=== PATIENT | male | born 1955 | race Caucasian/White ===

== ENCOUNTER → 2016-10-03 | Outpatient (CLI) | payer BC ==
[~2016-10-03] VITALS: Ht 175.3 cm; Wt 127.1 kg
[~2016-10-03] MED LIST: ACET325T96 PO; ASPCH81X PO; ATOR10TA88 PO; CALC600T14 PO; CETI10TA84 PO; CHOL100027 PO; FISHOIL PO; METO-217 PO; MULT-506 PO; OXYC1TAB3 PO; POTA99TA PO; PRLSR20 PO
[2016-10-03 15:58] VITALS: BP 122/77; PULSE 64; Ht 175.3 cm; Wt 127.1 kg
== END | disposition home or self-care (01) ==
LOC: C.NEUR 14:37
PROVIDERS: ATTEND Internal Medicine Pulmonary Disease
DX: G47.30 Sleep apnea, unspecified (principal)

== ENCOUNTER → 2017-01-20 | Outpatient (CLI) | payer BC ==
[~2017-01-20] MED LIST changes: +ATOR10TA82 PO; -ATOR10TA88 PO; -OXYC1TAB3 PO
[2017-01-20 12:34] LABS: ALT/SGPT 45 U/L (12-78); BLOOD UREA NITROGEN 13 mg/dl (7-18); BUN/CREATININE RATIO 15.7 (10-20); CARBON DIOXIDE 28 mmol/L (21-32); CHLORIDE 105 mmol/L (98-107); CHOLESTEROL 142 mg/dl (0-200); CREATININE 0.81 mg/dl (0.60-1.40); GLUCOSE 101 mg/dl (70-99); POTASSIUM 4.2 mmol/L (3.5-5.1); SODIUM 140 mmol/L (136-145); TRIGLYCERIDES 70 mg/dl (0-150); VERY LOW DENSITY LIPOPROT CALC 14 mg/dl
[2017-01-20 12:37] LABS: ALB/GLOB RATIO 1.1 (0.9-2); ALKALINE PHOSPHATASE 83 U/L (45-117); AST/SGOT 24 U/L (15-37); CHOLESTEROL/HDL RATIO 3.8; HDL CHOLESTEROL 37 mg/dl; LDL CHOLESTEROL CALCULATED 91 mg/dl
[2017-01-20 12:48] LABS: ESTIMATED AVERAGE GLUCOSE 117 mg/dl; HA1C FLAG Normal (Normal)
[2017-01-20 12:55] LABS: CALCIUM 9.1 mg/dl (8.5-10.1)
== END | disposition home or self-care (01) ==
LOC: C.LAB1850 09:40
PROVIDERS: ATTEND Family Medicine
DX: I10 Essential (primary) hypertension (principal); E11.9 Type 2 diabetes mellitus without complications; E66.01 Morbid (severe) obesity due to excess calories; R74.8 Abnormal levels of other serum enzymes; K76.0 Fatty (change of) liver, not elsewhere classified

== ENCOUNTER → 2017-09-29 | Outpatient (CLI) | payer OTHER ==
[~2017-09-29] MED LIST changes: +ACET-1693 PO; -ACET325T96 PO; +CALC500T25 PO; +CALC500T72 PO; +OMEG-13 PO
[2017-09-29 13:01] LABS: HEMOGLOBIN A1C 6.6 % (4.5-5.6)
[2017-09-29 13:32] LABS: BLOOD UREA NITROGEN 15 mg/dl (7-18); CALCIUM 9.1 mg/dl (8.5-10.1); CARBON DIOXIDE 31 mmol/L (21-32); CHOLESTEROL 183 mg/dl (0-200); CREATININE 0.94 mg/dl (0.60-1.40); GLUCOSE 124 mg/dl (70-99); POTASSIUM 4.2 mmol/L (3.5-5.1); SODIUM 138 mmol/L (136-145)
[2017-09-29 13:37] LABS: LDL CHOLESTEROL CALCULATED 115 mg/dl
== END | disposition home or self-care (01) ==
LOC: C.LAB1850 11:10
PROVIDERS: ATTEND Family Medicine
DX: E11.69 Type 2 diabetes mellitus with other specified complication (principal); N41.9 Inflammatory disease of prostate, unspecified; E78.2 Mixed hyperlipidemia; I10 Essential (primary) hypertension

== ENCOUNTER → 2017-10-05 | Outpatient (CLI) | payer OTHER ==
[~2017-10-05] VITALS: Ht 175.3 cm; Wt 138.3 kg
[~2017-10-05] MED LIST changes: -ACET-1693 PO; +ACET325T96 PO; -CALC500T25 PO; -CALC500T72 PO; -OMEG-13 PO
[2017-10-05 13:48] VITALS: BP 155/92; PULSE 83; Ht 175.3 cm; Wt 138.3 kg
== END | disposition home or self-care (01) ==
LOC: C.NEUR 13:35
PROVIDERS: ATTEND Physician Assistant
DX: G47.61 Periodic limb movement disorder (principal); G47.30 Sleep apnea, unspecified

== ENCOUNTER → 2017-12-22 | Outpatient (CLI) | payer OTHER ==
[~2017-12-22] MED LIST changes: +ACET-1693 PO; -ACET325T96 PO
[2017-12-22 12:50] LABS: HEMATOCRIT 41.5 % (42-52); HEMOGLOBIN 14.8 g/dL (14.0-18.0); MEAN CELL VOLUME 88.1 fL (80-100); MEAN CORPUSCULAR HEMOGLOBIN 31.4 pg (25-34); MEAN CORPUSCULAR HGB CONC 35.7 g/dl (32-36); MEAN PLATELET VOLUME 10.7 fL (7.4-10.4); PLATELET COUNT 162 K/uL (130-400); RED CELL DISTRIBUTION WIDTH CV 12.6 % (11.5-14.5); RED CELL DISTRIBUTION WIDTH SD 40.7 fL (36.4-46.3); WHITE BLOOD COUNT 7.57 K/uL (4.8-10.8)
[2017-12-22 15:32] LABS: ALBUMIN 3.9 gm/dl (3.4-5.0); ALT/SGPT 107 U/L (12-78); BLOOD UREA NITROGEN 12 mg/dl (7-18); CALCIUM 8.6 mg/dl (8.5-10.1); CARBON DIOXIDE 27 mmol/L (21-32); CHOLESTEROL 142 mg/dl (0-200); CREATININE 0.86 mg/dl (0.60-1.40); GLUCOSE 117 mg/dl (70-99); POTASSIUM 4.1 mmol/L (3.5-5.1); SODIUM 138 mmol/L (136-145)
[2017-12-22 15:43] LABS: ALKALINE PHOSPHATASE 81 U/L (45-117); AST/SGOT 66 U/L (15-37); LDL CHOLESTEROL CALCULATED 83 mg/dl
== END | disposition home or self-care (01) ==
LOC: C.LAB1850 11:23
PROVIDERS: ATTEND Family Medicine
DX: Z00.00 Encounter for general adult medical examination without abnormal findings (principal); E11.9 Type 2 diabetes mellitus without complications; E78.2 Mixed hyperlipidemia; I10 Essential (primary) hypertension

== ENCOUNTER 2018-02-05 13:19 | Emergency (ER) | payer OTHER ==
[~2018-02-05] VITALS: Ht 175.3 cm; Wt 140.6 kg
[2018-02-05 13:22] VITALS: TEMP 36.8; Ht 175.3 cm; Wt 140.6 kg
[2018-02-05] MEDS ORDERED: PROPARACAINE HCL 0.5% OP SOLN 15 ML BTL OPB STA (13:26)
[2018-02-05] MEDS ORDERED: OMEG-13 PO (13:44)
[2018-02-05] MEDS ORDERED: CALC500T25 PO (13:44)
[2018-02-05] MEDS ORDERED: CALC500T72 PO (13:45)
--- NOTE | 2018-02-05 14:28 | EMERGENCY ROOM VISIT NOTE ---
History First contact with patient: 13:26 Chief Complaint: EYE PAIN Stated Complaint: RT EYE History of Present Illness The patient is a 62 year old male who presents to the Emergency Room with complaints of bilateral eye discomfort after accidentally spraying an insect repellent in his eyes. The patient reports that he was spraying his hat while wearing it, and when he got below his bill, sprayed his eyes. The patient reports that he attempted to irrigate his eyes with water. He reports persistent discomfort. He denies any significant blurred vision, headache, nausea or other symptoms. Tetanus immunization is up-to-date. Review of Systems 10 system review was performed and was negative except for pertinent positives and negatives as indicated in history of present illness Past Medical/Surgical History Medical Problems: (1) GERD (gastroesophageal reflux disease) (2) Hypertension (3) Kidney disease Medical Problems: (1) Diverticulosis Colon (W/O Ment Of Hemorrhage) (2) GERD (gastroesophageal reflux disease) (3) History Of Tobacco Use (4) Hyperlipidemia Nec/Nos (5) Hypertension (6) Inflammatory Disease Of Prostate, Unspecified (7) Kidney disease (8) Morbid (Severe) Obesity Due To Excess Calories (9) Sleep Apnea, Unspecified Family History Cancer Diabetes mellitus Hypertension Social History Smoking Status: Never Smoker Alcohol Use: none Drug Use: none Marital Status: Housing Status: lives with family Occupation Status: employed Current/Historical Medications Scheduled Aspirin (Aspirin Chewable), 81 MG PO DAILY Atorvastatin (Lipitor), 10 MG PO DAILY Calcium Ascorbate (Vitamin C), 500 MG PO DAILY Calcium Carbonate (Calcium), 1,250 MG PO DAILY Cetirizine (Zyrtec), 10 MG PO DAILY Cholecalciferol (Vitamin D 1000 Unit), 2,000 INTER.UNIT PO DAILY Metoprolol Succinate (Toprol Xl), 50 MG PO DAILY Multivitamin (Multivitamin), 1 TAB PO DAILY [place]-3 Fatty Acids (Fish Oil), 1 CAP PO BID Omeprazole (Prilosec), 20 MG PO DAILY Potassium (Potassium), 99 MG PO DAILY Scheduled PRN Acetaminophen Tab (Tylenol), 650 MG PO UD PRN for Pain Physical Exam Vital Signs Date Time Temp Pulse Resp B/P (MAP) Pulse Ox O2 Delivery O2 Flow Rate FiO2 18 13:22 36.8 71 18 183/109 94 Room Air Physical Exam CONSTITUTIONAL: Healthy and well nourished. Patient does not appear in any acute distress. HEENT: Normocephalic, atraumatic. Pupils equal, round and reactive. No significant conjunctival injection or excess tearing/mucopurulent/bloody drainage from the eyes. No facial edema or erythema noted. NECK: Full active range of motion without discomfort. RESPIRATORY: Clear to auscultation bilaterally with no wheezing, crackles, rhonchi or stridor. CARDIOVASCULAR: Regular rate and rhythm with no murmurs, rubs or gallops. INTEGUMENTARY: No rash or other significant dermatologic conditions noted. NEUROLOGIC: No focal neurologic deficits noted. Medical Decision & Procedures Medications Administered Medications (Trade) Dose Ordered Sig/Alina Route Start Time Stop Time Status Last Admin Dose Admin Proparacaine HCl (Alcaine 0.5% Oph Soln) 2 drops NOW STAT OPB 02/05/18 13:26 02/05/18 13:27 DC 02/05/18 13:52 2 DROPS Procedure 2 drops of Alcaine were instilled into each eye. Cuauhtemoc lenses were then inserted in each eye was irrigated with a liter of normal saline. After Cuauhtemoc lens irrigation, slit-lamp exam was performed. 2 additional drops of Alcaine were instilled in each eye, followed by fluorescein dye. Examination does not show any corneal uptake, abrasions or evidence for chemical chemosis/irritation. ED Course Patient history and physical exam were performed. Nurse's notes were reviewed. The patient did bring the product bottle with him. The product is Chassell Skin- So-Soft with bug guard plus ([id number]% as the active ingredient). I did contact and spoke with a agricultural sales representative from [employer] who recommended Cuauhtemoc lens irrigation and slit lamp exam, with referral to ophthalmology as needed. 2 drops of Alcaine were instilled into each eye prior to Cuauhtemoc lens insertion. Each eye was then irrigated with a liter normal saline. Slit-lamp and fluorescein exam were normal. The patient was dispensed Lacri-Lube ophthalmic ointment. He was encouraged to intermittently apply cool compresses to the eyes for additional relief. The patient was instructed to follow-up with Dr. Manriquez, teacher early childhood development waste transportation technician with any persistent symptoms, blurred vision, headaches or other concerns. The patient was happy with plan of care, voiced understanding of our discharge instructions, and denied any discomfort at the conclusion of my exam. Medical Decision Blood Pressure Screening Patient's blood pressure: Normal blood pressure Impression Primary Impression: Acute chemical conjunctivitis of both eyes Departure Information Referrals Shonda Forbes M.D. (PCP) Patient Instructions My [facility]
[2018-02-05] MEDS ORDERED: ARTIFICIAL TEARS OP OINT 3.5 GM TUBE OP ONE (14:30)
[2018-02-05 14:41] VITALS: BP 126/99; PULSE 72; O2SAT 100
== END 2018-02-05 14:42 | disposition home or self-care (01) ==
LOC: C.EDB 13:20 → C.EDD 14:42
DX: T60.2X1A Toxic effect of other insecticides, accidental (unintentional), initial encounter (principal); H10.213 Acute toxic conjunctivitis, bilateral; E78.5 Hyperlipidemia, unspecified; K21.9 Gastro-esophageal reflux disease without esophagitis; Z79.82 Long term (current) use of aspirin

== ENCOUNTER 2019-02-06 06:20 | Observation (INO) ==
--- NOTE | 2019-02-05 09:18 | Anesthesiology Consultation ---
Date of Service February 05, 2019 Assessment & Plan (1) Encounter for pre-operative examination: Chart Review Chart Review: Acceptable Risk for Surgery and Patient NOT seen in Pre Admission Testing History Surgery Operation Date: 02/06/19 08:00 Proposed Procedures p Supraventricular Tachycardia Study with Mapping and Anesthesia - Andie Antunez DO Height/Weight Height: 5 ft 9 in Weight: 138.346 kg Allergies Allergy/AdvReac Type Severity Reaction Status Date / Time amoxicillin Allergy Unknown RED AND Verified 02/01/19 11:54 START TO SWELL UP Influenza Virus Vaccines Allergy Unknown "MAKES ME Verified 02/01/19 11:54 SICKER" streptomycin Allergy Unknown EYES BURN Verified 02/01/19 11:54 Medications Home Medications Medication Instructions Recorded Confirmed Last Taken Tomasa Gonzalez U-100 Insulin 10 unit SUBCUT QPM 10/19/18 02/01/19 01/19/19 acetaminophen [Tylenol Extra 500 - 1,000 mg PO Q6H PRN 10/19/18 02/01/19 10/30/18 Strength] ascorbic acid (vitamin C) [Vitamin 500 mg PO BID 10/19/18 02/01/19 01/20/19 C] aspirin 81 mg PO QAM 10/19/18 02/01/19 01/21/19 324mg calcium carbonate-vitamin D3 1 tab PO BID 10/19/18 02/01/19 01/21/19 [Calcium 600 + D(3)] cetirizine [Zyrtec] 10 mg PO QAM 10/19/18 02/01/19 01/21/19 cholecalciferol (vitamin D3) 1,000 unit PO BID 10/19/18 02/01/19 01/21/19 [Vitamin D3] metformin 500 mg PO BID 10/19/18 02/01/19 01/20/19 metoprolol succinate 25 mg PO QPM 10/19/18 02/01/19 01/20/19 multivitamin 1 tab PO QPM 10/19/18 02/01/19 01/21/19 omega 0-fif-ipg-fish oil [Fish Oil] 1 cap PO BID 10/19/18 02/01/19 01/21/19 omeprazole 20 mg PO QAM 10/19/18 02/01/19 01/21/19 potassium 99 mg PO QPM 10/19/18 02/01/19 01/21/19 sertraline 50 mg PO QPM 10/19/18 02/01/19 01/20/19 atorvastatin [Lipitor] 60 mg PO DAILY 01/21/19 02/01/19 01/21/19 ciclopirox [Loprox (as olamine)] 1 applic TOPICAL Q12H PRN 01/21/19 02/01/19 Unknown Past Medical History Medical History Chest pain Evaluated at [facility] ED 01/12/19. Found to be in SVT at 180bpm. Had OP cardiac cath 01/21 showing normal coronary arteries. Depression Diabetes mellitus, type 2 IDDM GERD (gastroesophageal reflux disease) Hearing deficit History of colon polyps Hyperlipidemia Hypertension Morbid obesity Paroxysmal SVT (supraventricular tachycardia) recent ER visit [facility] 01/12/19 Sleep apnea cpap Past Family History Family History Sister Family history of diabetes mellitus Mother Family history of diabetes mellitus Grandmother (Maternal) Family history of diabetes mellitus Grandfather (Maternal) Family hx of colon cancer Other No family history of adverse response to anesthesia Past Surgical History Surgical History History of cardiac cath 01/21/19 - [facility] -arrhythmia + cp - no stents/angioplasty - follows w/ Dr. Aj History of colonoscopy History of ear surgery "paper patch applied to ruptured eardrum" History of esophagogastroduodenoscopy (EGD) History of hand surgery left hand pinky finger History of tooth extraction all top teeth removed Social History Smoking Status: Former smoker Do You Dip or Chew Tobacco: No Smoking End Date: quit 1982 Hx Alcohol Use: Yes Alcohol type: hard liquor alcohol intake frequency: holidays/special occasions only Hx Substance Use: No substance use type: does not use Testing Electrocardiogram Date: 01/18/19 Findings: + NSR @ (63) Chest X-Ray Date: 01/12/19 Findings: + NAD Echocardiogram Date: 02/04/19 EF: 55-59% The examination is adequate to evaluate the referral indication. EF normal. Left ventricular wall motion normal. Mild concentric LVH. Right ventricular systolic function is normal. Normal atria. Mild MR. Cardiac Catheterization Date: 01/21/19 Coronary angiography: Selective injections of the left coronary artery revealed a left main trunk to be smooth in appearance widely patent and within normal limits. The left circumflex artery consists principally of 2 large lateral marginal branches. The left circumflex system is smooth in appearance widely patent and within normal limits. The LAD system reaches to the apex of the heart. The LAD gives off a large first diagonal branch and then a second smaller diagonal branch. The LAD system is smooth in appearance widely patent and within normal limits. Selective injections of the right coronary artery revealed to be dominant. The right coronary artery is smooth in appearance widely patent and within normal limits. Summary: Normal coronary arteries. Laboratory Results 01/12/19 WBC: 10.25 H/H: 15.8/43.6 PLATELETS: 173 SODIUM: 143 POTASSIUM: 3.9 CHLORIDE: 107 CO2: 27 BUN: 16 CREATININE: 1.12 GLUCOSE: 164 PT: 11.2 PTT: 24.5 INR: 1.1
[~2019-02-06 06:20] MED LIST changes: -ACET-1693 PO; -ASPCH81X PO; -ATOR10TA82 PO; -CALC600T14 PO; -CETI10TA84 PO; -CHOL100027 PO; -FISHOIL PO; +LR 15ML/HR IV SCH; -METO-217 PO; -MULT-506 PO; -POTA99TA PO; -PRLSR20 PO
[2019-02-06] MEDS ORDERED: LIDOCAINE HCL 2% 2 ML VIAL/AMP(20MG/ML) INFIL ONE (08:03)
[2019-02-06] MEDS ORDERED: PROPOFOL IV EMULSION 10 MG/ML 20 ML VIAL IV ONE ×4 (08:03→11:51)
[2019-02-06] MEDS ORDERED: MIDAZOLAM HCL 1 MG/ML 2ML VIAL ONE ×2 (08:03→09:00)
[2019-02-06] MEDS ORDERED: fentaNYL citrate 100 MCG/2 ML VIAL ONE ×3 (08:03→10:30)
[2019-02-06] MEDS ORDERED: PROPOFOL IV EMULSION 10 MG/ML 100 ML VIAL IV ONE (08:05)
--- NOTE | 2019-02-06 08:08 | History & Physical Report ---
Date of Service February 06, 2019 Assessment & Plan (1) SVT (supraventricular tachycardia): History of Present Illness Chief Complaint: pt with episode of lightheadedness, chest pain palpitations and syncope; cath was negative for an EPS with possible ablation Primary Care Provider: Shonda Forbes MD pt with episode of lightheadedness, chest pain palpitations and syncope; cath was negative for an EPS with possible ablation Allergies Allergy/AdvReac Type Severity Reaction Status Date / Time amoxicillin Allergy Unknown RED AND Verified 02/06/19 06:48 START TO SWELL UP Influenza Virus Vaccines Allergy Unknown "MAKES ME Verified 02/06/19 06:48 SICKER" streptomycin Allergy Unknown EYES BURN Verified 02/06/19 06:48 Home Medications Home Medications Medication Instructions Recorded Confirmed Type Tomasa Gonzalez U-100 Insulin 10 unit SUBCUT QPM 10/19/18 02/06/19 History acetaminophen [Tylenol Extra 500 - 1,000 mg PO Q6H PRN 10/19/18 02/06/19 History Strength] ascorbic acid (vitamin C) [Vitamin 500 mg PO BID 10/19/18 02/06/19 History C] aspirin 81 mg PO QAM 10/19/18 02/06/19 History calcium carbonate-vitamin D3 1 tab PO BID 10/19/18 02/06/19 History [Calcium 600 + D(3)] cetirizine [Zyrtec] 10 mg PO QAM 10/19/18 02/06/19 History cholecalciferol (vitamin D3) 1,000 unit PO BID 10/19/18 02/06/19 History [Vitamin D3] metformin 500 mg PO BID 10/19/18 02/06/19 History metoprolol succinate 25 mg PO QPM 10/19/18 02/06/19 History multivitamin 1 tab PO QPM 10/19/18 02/06/19 History omega 4-rzz-yvm-fish oil [Fish Oil] 1 cap PO BID 10/19/18 02/06/19 History omeprazole 20 mg PO QAM 10/19/18 02/06/19 History potassium 99 mg PO QPM 10/19/18 02/06/19 History sertraline 50 mg PO QPM 10/19/18 02/06/19 History atorvastatin [Lipitor] 60 mg PO DAILY 01/21/19 02/06/19 History ciclopirox [Loprox (as olamine)] 1 applic TOPICAL Q12H PRN 01/21/19 02/01/19 History Past Med/Surg History Medical History Chest pain Evaluated at [facility] ED 01/12/19. Found to be in SVT at 180bpm. Had OP cardiac cath 01/21 showing normal coronary arteries. Depression Diabetes mellitus, type 2 IDDM GERD (gastroesophageal reflux disease) Hearing deficit History of colon polyps Hyperlipidemia Hypertension Morbid obesity Paroxysmal SVT (supraventricular tachycardia) recent ER visit [facility] 01/12/19 Sleep apnea cpap Surgical History History of cardiac cath 01/21/19 - [facility] -arrhythmia + cp - no stents/angioplasty - follows w/ Dr. Aj History of colonoscopy History of ear surgery "paper patch applied to ruptured eardrum" History of esophagogastroduodenoscopy (EGD) History of hand surgery left hand pinky finger History of tooth extraction all top teeth removed Family History Sister Family history of diabetes mellitus Mother Family history of diabetes mellitus Grandmother (Maternal) Family history of diabetes mellitus Grandfather (Maternal) Family hx of colon cancer Other No family history of adverse response to anesthesia Social History Preferred Language: Monegasque Communication Ability: Effective Auto Rebuilder Required: No Beliefs That Will Affect Care: None Current Living Situation: Spouse Other Information That Helps Us Care for You: No Feels Safe at Home: Yes Safety Concerns: Feels Safe At This Time Smoking Status: Former smoker Do You Dip or Chew Tobacco: No Smoking End Date: quit 1982 Second Hand Exposure: Yes (work environment) Tobacco Cessation Education Requested by Patient: No Hx Alcohol Use: Yes Alcohol type: hard liquor Hx Substance Use: No Review of Systems All systems reviewed & are unremarkable except as noted in HPI & below Physical Exam Physical Exam: aaox3, NAD NC/AT, EOMI Supple No JVD Nrl S1/S2, No murmur CTA b/l no w/r/r soft nt/nd no LE edema b/l skin intact no focal deficits Results & Data Vital Signs (Past 12 Hours) Vital Signs Temp Pulse Resp BP Pulse Ox 02/06/19 07:02 36.9 C 69 18 149/96 H 96
[2019-02-06] MEDS ORDERED: ISOPROTERENOL 200 MCG / 50ML D5W IV ONE (09:46)
[2019-02-06] MEDS ORDERED: KETAMINE HCL INJ 50 MG/ML 10 ML VIAL ONE (10:37)
[2019-02-06] MEDS ORDERED: ACETAMINOPHEN 325 MG TAB PO PRN (12:06)
--- NOTE | 2019-02-06 12:16 | Operative Report ---
Post Operative Report Pre & Post Diagnosis Pre OP: SVT Post OP: AVNRT Operation Date: 02/06/19 08:00 <No data on this case meets the specified criteria> Procedure Operation Date: 02/06/19 08:00 Actual Procedures p EPS + Ablation for SVT Flutter - DO miguel Rosas Drug Stimulation - DO miguel Rosas 3D Mapping (Carto) - Andie Antunez DO Surgeon Andie Antunez, Guitar Player none Estimated Blood Loss 5 Findings Consistent with Post-Op Diagnosis Specimens none Description of Procedure see official report I attest to the content of the Intraoperative Record and any orders documented therein. Any exceptions are noted below.
--- NOTE | 2019-02-06 13:23 | Anesthesiology Progress Note ---
Date of Service February 06, 2019 Anesthesia Post Procedure Vital Signs Vital Signs: Temp Pulse Resp BP Pulse Ox 02/06/19 12:37 36.8 C 68 16 142/99 H 95 02/06/19 07:02 36.9 C 69 18 149/96 H 96 Transfer of Care Handoff Completed per policy Notes Mental Status: alert / awake / arousable Patient Amnestic to Procedure: Yes Nausea / Vomiting: adequately controlled Pain: adequately controlled Airway Patency, RR, SpO2: stable & adequate BP & HR: stable & adequate Hydration State: stable & adequate Anesthetic Complications: no major complications apparent
[2019-02-06] MEDS ORDERED: CARBOHYDRATES FOR HYPOGLYCEMIA PO PRN (13:30)
[2019-02-06] MEDS ORDERED: GLUCOSE 40% GEL 15 GM TUBE PO PRN (13:30)
[2019-02-06] MEDS ORDERED: GLUCAGON FOR INJ 1 MG VIAL IM PRN (13:30)
[2019-02-06] MEDS ORDERED: DEXTROSE 50% 50 ML SYRINGE IV PRN (13:30)
[2019-02-06] MEDS ORDERED: GLUCOSE 10 TABS/TUBE PO PRN (13:30)
[2019-02-06 14:30] LABS: Creatinine Clr Calc Pharmacy 122.6 ml/min; Est GFR (African American) 107.7; Est GFR (Non-African American) 92.9
[2019-02-06] MEDS: CALCIUM 600MG + VIT D 400 IU TAB PO SCH (16:49)
--- NOTE | 2019-02-06 17:42 | Operative Report ---
DATE OF OPERATION: 02/06/2019 PREOPERATIVE DIAGNOSIS: Supraventricular tachycardia. POSTOPERATIVE DIAGNOSIS: Atrioventricular nancy reentrant tachycardia. PROCEDURE: Electrophysiology study, isuprel drug infusion, slow pathway modification, 3D mapping of the His bundle region and coronary sinus os. SURGEON: Andie Antunez DO. ANESTHESIA: Monitored anesthetic care administered via anesthesiology. See their notes for complete details, but a total of 4 mg of Versed, 300 mcg of fentanyl, 50 mg of propofol, 40 mg of ketamine. INTRAVENOUS FLUIDS: He got 200 mL during my procedure but same day gave 400 mL for some reason. BLOOD LOSS: 5 mL. URINE OUTPUT: Not applicable. SPECIMENS: None. FINDINGS: See below. DRAINS: None. COMPLICATIONS: None. CONDITION: Stable. INDICATIONS: This is a 63-year-old gentleman who has a past medical history for hypertension, hyperlipidemia, obstructive sleep apnea on CPAP, diabetes, morbid obesity. He was at the Emergency Room on 01/12/2019 secondary to SVT, short RP at 180 beats per minute, it broke after 2 doses of adenosine. He had a cardiac catheterization as an outpatient to ensure that he did not have any significant coronary artery disease and the cardiac cath was clean. So he was recommended for an electrophysiology study with possible ablation. CONSENT: Consent was obtained prior to the patient going into electrophysiology lab. The patient was informed of the risks, benefits, and alternatives of the procedure. Risks include but not limited to sudden cardiac , cardiac arrhythmias, cerebrovascular accident, myocardial infarction, injury to the blood vessels, chamber of the heart or the marshall electrical system where he would need a permanent pacemaker, bleeding and infection. The patient understood these risks and agreed to the procedure as planned. Informed consent was obtained. DESCRIPTION OF THE PROCEDURE: The patient was brought into the electrophysiology room in a fasting state. He was connected to continuous quality assurance monitor. A timeout was performed to ensure patient identity and procedure correctly. The patient was prepped and draped over the bilateral groins in normal surgical standard fashion. Monitored conscious sedation was given throughout the procedure for patient's comfort level via anesthesiology. [place] precautions were maintained throughout the procedure. 10 mL of 1% lidocaine were given in the bilateral groins for local anesthesia. Then, using modified Seldinger technique, venous access was obtained. Of note, on the left, I did hit with my IV needle the femoral artery twice. Pressure was held both times. There was no hematoma. The right femoral vein had a 6-Mozambican sheath followed by a Tiki quadripolar catheter positioned in the high right atrium. A 6-Mozambican sheath followed by a Tiki quadripolar catheter positioned in the right ventricular apex. A 6-Mozambican sheath that was eventually swapped out for an SR0 for the ablation catheter, which was a Biosense DF curve 4 mm. The left femoral vein had a 7-Mozambican sheath followed by a Hisser quadripolar catheter positioned over the His bundle. A 7-Mozambican sheath followed by a Decapolar Biosense DF curve coronary sinus catheter positioned down the coronary sinus. With the catheters all in position, electrophysiology study was performed with the following findings: NJ interval 182 milliseconds, QRS 80 milliseconds, QT 402 milliseconds. Sinus cycle length 950 milliseconds, AH 92 milliseconds, HV 62 milliseconds. The AV Wenckebach was 380 milliseconds. The AV node ERP was less than or equal to the atrial ERP at [address] The atrial ERP was 600/250 and 500/240. The right ventricular ERP was 600/230 and 400/230. With atrial extrastimuli at 500/310, I did induce a SVT. The tachycardia cycle length was slower than his clinical at 384 milliseconds and the VA time was 120 milliseconds. It did start with an AH jump though and it looked concentric with the retrograde. This did break on its own. With ventricular extrastimuli, I induced tachycardia again. I initiated with an APC at 400/240, ventricular stimulation at 400/240 followed then by a marshall APC came in. He went into SVT with a tachycardia cycle length of 372 and the VA time was 126 milliseconds. With atrial double extrastimuli at 500/400/320, SVT was then reinduced at tachycardia cycle length of 380 and the VA time of 140, again he always broke on his own with these SVTs that were at a different rate than his clinical. Then with double atrial extrastimuli at 500/400/310, again he went into the tachycardia but is a little faster at 368 milliseconds and it did start with an AH jump. Since I kept inducing a slower SVT, but never sustained and it continued to break on its own, I started isuprel at 1 and once I had an isuprel effect, I started an electrophysiology study again. The AV node ERP was less than or equal to the atrial ERP at [address] and the atrial ERP was 500/220. With double atrial extrastimuli at 500/400/240 on isuprel, I did induce the tachycardia again. Tachycardia cycle length was best at this time at 300 milliseconds. VA time was 86 milliseconds and it was a concentric VA conduction. I induced this 2 more times at 500/370/230. Tachycardia cycle length was 288 milliseconds. VA time was 66 milliseconds. It initiated with an AH jump. The atrial retrograde A was concentric and the tachycardia continued with a VAV response. Of note, initially I was a little confused because I thought that maybe the earliest A was in the CS, but then when I went on for and realized the CS had pulled back when I pushed it out more, I confirmed that the earliest retrograde A was in the His concentric region. So, then I set up to do an ablation. The 6-Mozambican sheath on the right femoral vein that was empty was swapped out for an SR0, then the ablation SendTask DF curve 4 mm catheter was placed, advanced up into the heart. We did 3D mapping of the His bundle region as well as the coronary sinus os. Then I placed the ablation on the low atrial septum and started a series of radiofrequency hernandez at 30 mattson. I was a little bit higher up. There was a ridge that I was going back and forth in, but a few of the hernandez I felt were a little nerve wracking, I did have 2 or 3 beats that looked like it was AV dissociation, so I came off. We remapped, I went a little bit further lowered down on the right atrial septum. Again, there was a ridge here, at one point on the medial end of this ridge lowered down, I got a few junctionals, nothing that overwhelmingly confident, but I opted after giving a series of hernandez at 20 mattson to stop and see how we were clinically, so my post-ablation electrophysiology study is the following: NJ interval 164 milliseconds, QRS 84 milliseconds, QT 376 milliseconds, sinus cycle length 878 milliseconds, AH 102 milliseconds, HV 60 milliseconds, AV Wenckebach 360 milliseconds, the AV node ERP was less than or equal to the atrium at 600 and 500, the atrial ERP was 600/240 and 500/230. The right ventricular ERP was 600/230 and 400/220. I gave up to triple atrial extrastimuli from the high right atrium and I did not induce any SVT unlike before the ablation where I was getting that slow kind of atypical AVNRT, so then I did start 1 of isuprel. I did not induce any SVT with single atrial extrastimuli, but I did induce at 400/380/230. It was brief, only lasting about 10-12 beats and it broke on its own. I went back with my ablation catheter to do some electrogram and anatomical mapping and back in that low septum area where I gave those last few hernandez where I had a couple of junctionals, I saw a signal on my ablation catheter that this was too nerve wracking for me to think that maybe it was a His, even though I was 2 cm away from my His catheter as well as my His markers, so I opted not to do any further ablations All the catheters were pulled from the body and then the sheaths were pulled and manual compression was used to establish hemostasis. IMPRESSION: 1. 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 2. Partially successful slow pathway modification and suppression of the atrioventricular nancy reentry tachycardia. PLAN: Monitor the patient overnight. No heavy lifting or squatting for 1 week of more than 10 pounds. We will increase his metoprolol to 37.5 mg daily and we will see how he does clinically as he really needs to get his heart rates fed up to even have partially inducible AVNRT, but again I was nervous that I was going to have a high risk of causing complete heart block to continue any further ablations without seeing how he does clinically. He will follow up with me in the office in 1 month's time. I attest to the content of the Intraoperative Record and any orders documented therein. Any exception s are noted below.
[2019-02-06] MEDS ORDERED: INSULIN GLARGINE SOLOSTAR 100 UNITS/ML 3 ML PEN SQ SCH (21:00)
[2019-02-06] MEDS ORDERED: MULTIVITAMIN TAB PO SCH (21:00)
[2019-02-06] MEDS ORDERED: SERTRALINE HCL 50 MG TABLET PO SCH (21:00)
[2019-02-06] MEDS ORDERED: NON-FORMULARY MEDICATION (Potassium 99 MG) PO SCH (21:00)
[2019-02-06] MEDS: ASCORBIC ACID 500 MG TAB PO SCH (21:16)
[2019-02-06] MEDS: OMEGA-3 (PURIFIED FISH OIL) 1 GM CAP PO SCH (21:16)
[2019-02-06] MEDS: CHOLECALCIFEROL 1,000 UNITS TAB PO SCH (21:16)
[2019-02-07] MEDS: CALCIUM 600MG + VIT D 400 IU TAB PO SCH (07:49)
[2019-02-07] MEDS: OMEGA-3 (PURIFIED FISH OIL) 1 GM CAP PO SCH (07:49)
[2019-02-07] MEDS: CHOLECALCIFEROL 1,000 UNITS TAB PO SCH (07:49)
[2019-02-07] MEDS: ASCORBIC ACID 500 MG TAB PO SCH (07:49)
[2019-02-07] MEDS ORDERED: METFORMIN HCL 500 MG TAB PO SCH (08:00)
--- NOTE | 2019-02-07 08:05 | Anesthesiology Progress Note ---
Date of Service February 07, 2019 Anesthesia Post Procedure Vital Signs Vital Signs: Temp Pulse Pulse Resp BP BP Pulse Ox 02/07/19 07:02 37.0 C 64 18 124/84 95 02/07/19 03:18 37.0 C 66 19 136/86 95 02/06/19 23:36 68 02/06/19 23:19 37.1 C 70 18 142/89 H 95 02/06/19 19:35 37.2 C 72 19 137/88 95 02/06/19 16:04 37.0 C 72 17 138/90 96 02/06/19 14:30 67 16 135/89 97 02/06/19 14:00 65 14 129/89 96 02/06/19 13:25 65 16 133/85 96 02/06/19 13:10 67 15 136/84 96 02/06/19 12:55 65 16 135/85 96 02/06/19 12:37 36.8 C 68 16 142/99 H 95 Notes Mental Status: alert / awake / arousable and participated in evaluation Nausea / Vomiting: adequately controlled Pain: adequately controlled Airway Patency, RR, SpO2: stable & adequate BP & HR: stable & adequate Hydration State: stable & adequate
[2019-02-07] MEDS ORDERED: ATORVASTATIN 20 MG TAB PO SCH (09:00)
[2019-02-07] MEDS ORDERED: CETIRIZINE HCL 10 MG TABLET PO SCH (09:00)
[2019-02-07] MEDS ORDERED: ASPIRIN 81 MG ECTAB PO SCH (09:00)
[2019-02-07] MEDS ORDERED: METOPROLOL SUCC 25MG EXT REL TAB PO SCH ×2 (09:00)
[2019-02-07] MEDS ORDERED: PANTOprazole 40 MG TAB PO SCH (09:00)
--- NOTE | 2019-02-22 08:12 | Discharge Summary ---
Date of Service February 06-Feb 07 2019 Admission HPI pt with episode of lightheadedness, chest pain palpitations and syncope; cath was negative for an EPS with possible ablation Admission Exam Per Admitting Provider aaox3, NAD NC/AT, EOMI Supple No JVD Nrl S1/S2, No murmur CTA b/l no w/r/r soft nt/nd no LE edema b/l skin intact no focal deficits Principal Diagnosis Principal Diagnosis AVNRT s/p slow pathway modification Discharge Exam aaox3, NAD NC/AT, EOMI Supple No JVD Nrl S1/S2, No murmur CTA b/l no w/r/r soft nt/nd no LE edema b/l skin intact no focal deficits ECG: SR Discharge Data Allergies Allergy/AdvReac Type Severity Reaction Status Date / Time amoxicillin Allergy Unknown RED AND Verified 02/12/19 05:29 START TO SWELL UP Influenza Virus Vaccines Allergy Unknown "MAKES ME Verified 02/12/19 05:29 SICKER" streptomycin Allergy Unknown EYES BURN Verified 02/12/19 05:29 Procedures Performed Operation Date: 02/06/19 08:00 Actual Procedures p EPS + Ablation for SVT Flutter - DO miguel Rosas Drug Stimulation - DO miguel Rosas 3D Mapping (Carto) - Andie Antunez DO Ordered Studies 02/06/19 07:45 EP Lab Images for PACS ONCE Hospital Course (1) SVT (supraventricular tachycardia): (2) AVNRT (AV nancy re-entry tachycardia): Total Time Total Time Spent Total Time Spent (In Minutes): 30 Total Time Includes: Examination of the Patient, Discharge Planning, Medication Reconciliation and Other Discharge Plan Discharge Items Patient Disposition: Home - Self-Care Reason For Visit: S/P SVT ABLATION Discharge Diagnosis: AVNRT s/p ablation Condition: Good Discharge Goals: Improve function Activity: As commented below Lifting: No more than 10 pounds Lifting Comment: no heavy lifting or squating for 1 week Bathing: No limitations and Keep incision dry Sexual Activity: After two weeks Driving/Machine Use: Resume 1 day after discharge Non-emergency contact: Learning And Development Administrator Call non-emergency contact if: you have any medication questions Follow-up/Referrals: Shonda Forbes MD [Primary Care Provider] - Diet: Heart Healthy Addtl Provider Instructions: f/u with Dr. Antunez in 1 month-we will change your appointment to mid February Prescriptions: New metoprolol succinate 25 mg Tablet Extended Release 24 Hr 37.5 mg PO QAM Qty: 45 RF: 0 Continued multivitamin Tablet 1 tab PO QPM RF: 0 metformin 500 mg Tablet 500 mg PO BID RF: 0 cetirizine [Zyrtec] 10 mg Tablet 10 mg PO QAM RF: 0 acetaminophen [Tylenol Extra Strength] 500 mg Tablet 500 - 1,000 mg PO Q6H PRN (Reason: Pain) RF: 0 potassium 99 mg Tablet 99 mg PO QPM RF: 0 ascorbic acid (vitamin C) [Vitamin C] 500 mg Tablet 500 mg PO BID RF: 0 sertraline 50 mg Tablet 50 mg PO QPM RF: 0 cholecalciferol (vitamin D3) [Vitamin D3] 1,000 unit Tablet 1,000 unit PO BID RF: 0 calcium carbonate-vitamin D3 [Calcium 600 + D(3)] 600 mg(1,500mg) -400 unit Tablet 1 tab PO BID RF: 0 Basaglar KwikPen U-100 Insulin 100 unit/mL (3 mL) Insulin Pen 10 unit SUBCUT QPM RF: 0 omeprazole 20 mg Tablet,Delayed Release (Dr/Ec) 20 mg PO QAM RF: 0 omega 7-vme-xzy-fish oil [Fish Oil] 1,000 mg (120 mg-180 mg) Capsule 1 cap PO BID RF: 0 atorvastatin [Lipitor] 40 mg Tablet 20 mg PO QPM RF: 0 ciclopirox [Loprox (as olamine)] 0.77 % Cream 1 applic TOPICAL Q12H PRN (Reason: Rash) RF: 0 Discontinued metoprolol succinate 50 mg Tablet Extended Release 24 Hr 25 mg PO QPM RF: 0 No Action warfarin [Coumadin] 5 mg Tablet 5 mg PO DAILY@1600 Qty: 30 RF: 2 enoxaparin [Lovenox] 150 mg/mL Syringe 135 mg subcut Q12H 7 Days Qty: 12.6 RF: 0 lisinopril 5 mg tablet 5 mg PO DAILY Qty: 30 RF: 2 Stand-Alone Forms: [facility] Discharge Orders: Discharge Order (Routine); Ordered 02/07/19 Ordered By: Andie Antunez Admission Data Admit Date/Time: 02/06/19 11:13 Attending Provider: Andie Antunez Admit Provider: Andie Antunez Primary Care Provider: Shonda Forbes Service: Telemetry Other Interventions: Discharge Summary Assessment (RN) Last Done: 02/07/19 08:17 DC Date/Time DO NOT enter until pt leaves facility: 02/07/19 09:11
== END 2019-02-07 09:11 | disposition home or self-care (01) ==
LOC: 2S 06:20 → ASU 06:20
DX: Z79.82 Long term (current) use of aspirin; E11.9 Type 2 diabetes mellitus without complications; Z79.899 Other long term (current) drug therapy; I10 Essential (primary) hypertension; Z88.1 Allergy status to other antibiotic agents; Z99.89 Dependence on other enabling machines and devices; K21.9 Gastro-esophageal reflux disease without esophagitis; Z86.010 Personal history of colon polyps; G47.33 Obstructive sleep apnea (adult) (pediatric); Z88.7 Allergy status to serum and vaccine; Z88.0 Allergy status to penicillin; Z68.42 Body mass index [BMI] 45.0-49.9, adult; E66.01 Morbid (severe) obesity due to excess calories; E78.5 Hyperlipidemia, unspecified; I47.1 Supraventricular tachycardia

== ENCOUNTER 2019-02-12 04:55 | Inpatient (IN) ==
[2019-02-12] MEDS ORDERED: fentaNYL citrate 100 MCG/2 ML VIAL IV STA (05:37)
[2019-02-12 05:44] LABS: Basophils # (auto) 0.04 K/uL (0-0.2); Basophils % (auto) 0.4 %; Eosinophils # (auto) 0.35 K/uL (0-0.5); Eosinophils % (auto) 3.5 %; Hematocrit (blood only) 38.7 % (42-52); Hemoglobin 14.3 g/dL (14.0-18.0); Immature Granulocytes # (auto) 0.02 K/uL (0.00-0.02); Immature Granulocytes % (auto) 0.2 %; Lymphocytes # (auto) 3.41 K/uL (1.2-3.4); Lymphocytes % (auto) 34.4 %; Mean Corpuscular Volume 86.6 fL (80-100); Mean Platelet Volume 10.2 fL (7.4-10.4); Monocytes # (auto) 1.04 K/uL (0.11-0.59); Monocytes % (auto) 10.5 %; Neutrophils # (auto) 5.06 K/uL (1.4-6.5); Platelet Count 150 K/uL (130-400); RDW Coefficient of Variation 12.6 % (11.5-14.5); RDW Standard Deviation 40.1 fL (36.4-46.3); Red Blood Count 4.47 M/uL (4.7-6.1); White Blood Count 9.92 K/uL (4.8-10.8)
[2019-02-12 05:59] LABS: Alanine Aminotransferase 76 U/L (12-78); Albumin Level 3.5 gm/dl (3.4-5.0); Aspartate Aminotransferase 39 U/L (15-37); Blood Urea Nitrogen 14 mg/dl (7-18); Calcium 8.4 mg/dl (8.5-10.1); Carbon Dioxide 31 mmol/L (21-32); Chloride 103 mmol/L (98-107); Creatinine Clr Calc Pharmacy 116.8 ml/min; Est GFR (African American) 105.7; Est GFR (Non-African American) 91.2; Glucose 179 mg/dl (70-99); Magnesium 1.5 mg/dl (1.8-2.4); Potassium 3.9 mmol/L (3.5-5.1); Sodium 137 mmol/L (136-145)
[2019-02-12 06:06] LABS: Alkaline Phosphatase 109 U/L (45-117); Bilirubin,Total 0.4 mg/dl (0.2-1); Globulin 3.5 gm/dl (2.5-4.0); Troponin I < 0.015 ng/ml (0-0.045)
[2019-02-12 06:14] LABS: D Dimer 1150 ug/L FEU (0-500)
[2019-02-12] MEDS ORDERED: OPTIRAY 320 125ml IV PRN (06:24)
--- NOTE | 2019-02-12 06:31 | XRay Report ---
XR chest 1V portable CLINICAL HISTORY: Atypical chest pain COMPARISON STUDY: 01/12/2019 FINDINGS: The heart is at the upper limits of normal in size. There is no failure. There is no focal pulmonary consolidation. There are no pleural effusions.[ IMPRESSION: No active disease in the chest. Electronically signed by: Heriberto Rivera M.D. 02/12/2019 6:30 AM
--- NOTE | 2019-02-12 06:42 | CT Scan Report ---
CT angio chest dissec wo/w con CT DOSE: 2173.95 mGy.cm HISTORY: Pain back pain into chest, recent cath/ablation TECHNIQUE: Multiaxial CT images of the chest, abdomen, and pelvis were performed both before and afte r the intravenous administration of contrast to evaluate the aorta. Maximal intensity projection imag es were also obtained. A dose lowering technique was utilized adhering to the principles of ALARA. COMPARISON STUDY: None. FINDINGS: The thoracic aorta is normal in course and caliber. Findings of acute pulmonary emboli involving the distal left main pulmonary artery extending into com ponents of the left lower as well as left upper lobe distributions. There are no significant right sided filling defects. The lung specifically are generally clear. No evidence for focal infiltrate. IMPRESSION: 1. Study is positive for acute pulmonary emboli involving the distal left main pulmonary artery as we ll as the left lower and left upper lobe distributions proximally. 2. Lungs are considered clear with no focal infiltrate. 3. Negative thoracic aorta. The above report was generated using voice recognition software. It may contain grammatical, syntax or spelling errors. Electronically signed by: Rivera Mejia M.D. 02/12/2019 6:41 AM
[2019-02-12] MEDS ORDERED: MAGNESIUM SULFATE / D5W 1 GM/100 ML BAG IV ONE (06:54)
[2019-02-12] MEDS ORDERED: HEPARIN 25000 UNIT/500 ML D5W IV ONE (07:39)
[2019-02-12] MEDS ORDERED: HEPARIN SOD (PORCINE) 1000 UNIT/ML 10 ML VIAL ONE (07:39)
[2019-02-12 08:18] LABS: Partial Thromboplastin Ratio 0.9; Partial Thromboplastin Time 25.3 Seconds (21.0-31.0); Prothrombin Time 10.3 Seconds (9.0-12.0)
--- NOTE | 2019-02-12 08:56 | Emergency Department Note ---
Entered by Roya García acting as a scribe for Danuta Tripp DO History of Present Illness General Chief complaint: Chest Pain Stated complaint: CHEST PAIN Time Seen by Provider: 02/12/19 05:10 Source: patient Mode of arrival: EMS History of Present Illness Onset (ago): hour(s) 1 Location: chest Radiation: back Severity: similar to prior episodes Pain Consistency: + other (Sudden) Maximum Pain Intensity: 5 Quality: + other (Chest pain) Associated symptoms: + chest pain and + shortness of breath; no nausea/vomiting Treatments prior to arrival: aspirin (4 Baby aspirin) and other (3 sprays of Nitroglycerin) The patient is a 63 year old male presenting to the Emergency Department via EMS complaining of sudden chest pain starting 1 hour ago. The patient reports that he is currently experiencing chest pain. He describes that the pain begins in his back and radiates to his chest. He states that his heart is racing. He notes that he is short of breath. He adds that he has experienced these symptoms before about 1 month ago when he was in the Emergency Department. The patient reports that when he was here last for these symptoms he had a chemical cardioversion for SVT. He states that he received 4 Baby Aspirin and 3 sprays of Nitroglycerin COTTON FACTOR from EMS. The patient denies nausea and vomiting, lightheadedness or dizziness. Patient states he felt normal prior to going to bed. Patient's state he recently had a heart procedure done due to the abnormal rhythm he had. She states he was told that his heart was "good". Denies any change in activity or diet. States he has been taking all of his medications as he was previously instructed. Patient states his pain is improved since treatment from EMS however is still present. Home Medications Home Medications Medication Instructions Recorded Confirmed Type Basaglar KwikPen U-100 Insulin 10 unit SUBCUT QPM 10/19/18 02/12/19 History acetaminophen [Tylenol Extra 500 - 1,000 mg PO Q6H PRN 10/19/18 02/12/19 History Strength] ascorbic acid (vitamin C) [Vitamin 500 mg PO BID 10/19/18 02/12/19 History C] aspirin 81 mg PO QAM 10/19/18 02/12/19 History calcium carbonate-vitamin D3 1 tab PO BID 10/19/18 02/12/19 History [Calcium 600 + D(3)] cetirizine [Zyrtec] 10 mg PO QAM 10/19/18 02/12/19 History cholecalciferol (vitamin D3) 1,000 unit PO BID 10/19/18 02/12/19 History [Vitamin D3] metformin 500 mg PO BID 10/19/18 02/12/19 History multivitamin 1 tab PO QPM 10/19/18 02/12/19 History omega 1-kzz-ouf-fish oil [Fish Oil] 1 cap PO BID 10/19/18 02/12/19 History omeprazole 20 mg PO QAM 10/19/18 02/12/19 History potassium 99 mg PO QPM 10/19/18 02/12/19 History sertraline 50 mg PO QPM 10/19/18 02/12/19 History atorvastatin [Lipitor] 60 mg PO DAILY 01/21/19 02/12/19 History ciclopirox [Loprox (as olamine)] 1 applic TOPICAL Q12H PRN 01/21/19 02/12/19 History metoprolol succinate 37.5 mg PO QAM #45 tab 02/06/19 02/12/19 Rx Allergies Allergy/AdvReac Type Severity Reaction Status Date / Time amoxicillin Allergy Unknown RED AND Verified 02/12/19 05:29 START TO SWELL UP Influenza Virus Vaccines Allergy Unknown "MAKES ME Verified 02/12/19 05:29 SICKER" streptomycin Allergy Unknown EYES BURN Verified 02/12/19 05:29 Past Med/Surg History Medical History Chest pain Evaluated at [facility] ED 01/12/19. Found to be in SVT at 180bpm. Had OP cardiac cath 01/21 showing normal coronary arteries. Depression Diabetes mellitus, type 2 IDDM GERD (gastroesophageal reflux disease) Hearing deficit History of colon polyps Hyperlipidemia Hypertension Morbid obesity Paroxysmal SVT (supraventricular tachycardia) recent ER visit [facility] 01/12/19 Sleep apnea cpap Surgical History History of cardiac cath 01/21/19 - [facility] -arrhythmia + cp - no stents/angioplasty - follows w/ Dr. Aj History of colonoscopy History of ear surgery "paper patch applied to ruptured eardrum" History of esophagogastroduodenoscopy (EGD) History of hand surgery left hand pinky finger History of tooth extraction all top teeth removed Family History Sister Family history of diabetes mellitus Mother Family history of diabetes mellitus Grandmother (Maternal) Family history of diabetes mellitus Grandfather (Maternal) Family hx of colon cancer Other No family history of adverse response to anesthesia Social History Preferred Language: Bolivian Communication Ability: Effective Beliefs That Will Affect Care: None Current Living Situation: Spouse Feels Safe at Home: Yes Smoking Status: Former smoker Second Hand Exposure: Yes (work environment) Hx Alcohol Use: Yes Alcohol type: hard liquor Hx Substance Use: No Review of Systems See HPI for pertinent positives & negatives. and A total of 10 systems reviewed and were otherwise negative Physical Exam Vital Signs Vital Signs - 24 hr 02/12/19 04:59 02/12/19 05:01 02/12/19 05:06 Temperature 36.7 C Temperature Source Oral Sepsis Recent Fever Within 48 Hours No Sepsis Action Taken by Nursing No Action Required Pulse Rate 79 75 74 Pulse Rate [Right Apical] Pulse Rate from SpO2 Sensor 75 74 Pulse Rhythm [Right Apical] Pulse Strength [Right Apical] Respiratory Rate 18 21 22 Respiratory Effort / Characteristics Non-Labored Respiratory Depth Normal Blood Pressure 131/87 131/87 Blood Pressure [Right Arm] Blood Pressure Mean 101 101 Blood Pressure Mean [Right Arm] Blood Pressure Position [Right Arm] Pulse Oximetry 97 94 95 Oxygen Delivery Method Room Air 02/12/19 05:10 02/12/19 05:20 02/12/19 05:30 Temperature Temperature Source Sepsis Recent Fever Within 48 Hours Sepsis Action Taken by Nursing Pulse Rate 71 70 70 Pulse Rate [Right Apical] Pulse Rate from SpO2 Sensor 72 70 69 Pulse Rhythm [Right Apical] Pulse Strength [Right Apical] Respiratory Rate 18 21 20 Respiratory Effort / Characteristics Respiratory Depth Blood Pressure 131/93 Blood Pressure [Right Arm] Blood Pressure Mean 105 Blood Pressure Mean [Right Arm] Blood Pressure Position [Right Arm] Pulse Oximetry 94 96 97 Oxygen Delivery Method 02/12/19 05:40 02/12/19 05:50 02/12/19 06:00 Temperature Temperature Source Sepsis Recent Fever Within 48 Hours Sepsis Action Taken by Nursing Pulse Rate 65 67 66 Pulse Rate [Right Apical] Pulse Rate from SpO2 Sensor 66 69 67 Pulse Rhythm [Right Apical] Pulse Strength [Right Apical] Respiratory Rate 18 17 15 Respiratory Effort / Characteristics Respiratory Depth Blood Pressure 127/95 Blood Pressure [Right Arm] Blood Pressure Mean 105 Blood Pressure Mean [Right Arm] Blood Pressure Position [Right Arm] Pulse Oximetry 96 92 94 Oxygen Delivery Method 02/12/19 06:20 02/12/19 06:22 02/12/19 07:06 Temperature Temperature Source Sepsis Recent Fever Within 48 Hours Sepsis Action Taken by Nursing Pulse Rate 66 Pulse Rate [Right Apical] 66 67 Pulse Rate from SpO2 Sensor 63 Pulse Rhythm [Right Apical] Regular Pulse Strength [Right Apical] Normal Respiratory Rate 18 20 18 Respiratory Effort / Characteristics Non-Labored Spontaneous Respiratory Depth Normal Normal Blood Pressure Blood Pressure [Right Arm] 139/96 133/91 Blood Pressure Mean Blood Pressure Mean [Right Arm] 110 105 Blood Pressure Position [Right Arm] Sitting Pulse Oximetry 95 96 95 Oxygen Delivery Method Room Air GENERAL: alert, uncomfortable appearing, well nourished, no distress, non-toxic. Obese. EYE EXAM: normal conjunctiva, PERRL and EOM's grossly intact OROPHARYNX: no exudate, no erythema, lips, buccal mucosa, and tongue normal and mucous membranes are moist NECK: supple, no nuchal rigidity, no adenopathy, non-tender LUNGS: Clear to auscultation. Normal chest wall mechanics, no w/r/r HEART: no murmurs, S1 normal and S2 normal. Mildly reproducible chest wall discomfort with palpation at left sternal border. ABDOMEN: abdomen soft, non-tender, normo-active bowel sounds, no masses, no rebound or guarding. BACK: Back is symmetrical on inspection and there is no deformity, no midline tenderness, no CVA tenderness. SKIN: no rashes and no bruising UPPER EXTREMITIES: upper extremities are grossly normal. FROM, nml pulses b/l. LOWER EXTREMITIES: No pitting edema. FROM, nml pulses b/l. NEURO EXAM: Normal sensorium, cranial nerves II-XII grossly intact, normal speech, no gross weakness of arms, no gross weakness of legs. Course 0512: The patient was evaluated in room A10, and a complete history and physical examination were performed. 0529: EMR reviewed. Patient had a cardiac catheterization done on 01/21/19 which showed normal coronary arteries. He had an echocardiogram performed on 02/05/19 which showed LVEF 55% to 59%. No significant valve abnormality. On 02/05/19 Dr. Tulio Francis Application Development Consultant performed catheter 3D mapping and ablation of SVT. 0651: I discussed the patients case with Dr. Donte Valdes radiologist who informed me that the patient has a PE. 0657: I updated the patient on his imaging studies at this time. 0732: I discussed the patient's case with Dr. Quinten MOHAN hospitalist. He will evaluate the patient for further management. Consultations Consultation #1: I discussed the patients case with Dr. Donte Valdes radiologist who informed me that the patient has a PE. Time: 06:51 Consultation #2: I discussed the patient's case with Dr. Quinten MOHAN hospitalist. He will evaluate the patient for further management. Time: 07:32 Administered Medications Ioversol (Optiray 320 125ml) 125 ml IV ONCE PRN PRN Reason: Interaction Checking Stop: 02/16/19 06:23 Last Admin: 02/12/19 06:24 Dose: 119 ml Documented by: [id number] Discontinued Medications Fentanyl Citrate (Fentanyl Citrate) 100 mcg IV NOW STA Stop: 02/12/19 05:38 Last Admin: 02/12/19 05:41 Dose: 100 mcg Documented by: [id number] Heparin Sodium (Porcine) (Heparin Iv Bolus) Confirm Administered Dose 10,000 units .ROUTE .STK-MED ONE Stop: 02/12/19 07:40 Last Admin: 02/12/19 08:28 Dose: 8,000 units Documented by: [id number] Cosigned by: [id number] Heparin Sodium/Dextrose () 1 ea IV NOW STA; Protocol Stop: 02/12/19 07:30 Last Admin: 02/12/19 08:32 Dose: Not Given Documented by: [id number] Heparin Sodium/Dextrose (Heparin Sodium/Dextrose) Confirm Administered Dose 25,000 units IV .STK-MED ONE Stop: 02/12/19 07:40 Last Admin: 02/12/19 08:27 Dose: 1,750 units Documented by: [id number] Cosigned by: [id number] Magnesium Sulfate/Dextrose (Magnesium Sulfate / D5w) 1 gm in 100 mls @ 100 mls/hr IV ONE ONE Stop: 02/12/19 07:53 Last Admin: 02/12/19 06:58 Dose: 100 mls/hr Documented by: [id number] Medical Decision Making Differential Diagnosis Differential diagnoses includes but is not limited to acute coronary syndrome, myocardial infarction, pericarditis, pulmonary embolus, aortic dissection, pneumonia, pneumothorax, musculoskeletal, shingles, esophageal. Medical Records Attestation: I reviewed the patient's medical records. Home Medications Current Medication List: was personally reviewed by me Laboratory Data Attestation: I reviewed the patient's lab results. Result diagrams: 02/12/19 05:34 02/12/19 05:34 Lab Results 02/12/19 02/12/19 02/12/19 Range/Units 05:34 05:34 05:34 WBC 9.92 (4.8-10.8) K/uL RBC 4.47 L (4.7-6.1) M/uL Hgb 14.3 (14.0-18.0) g/dL Hct 38.7 L (42-52) % MCV 86.6 (80-100) fL MCH 32.0 (25-34) pg MCHC 37.0 H (32-36) g/dL RDW Std Deviation 40.1 (36.4-46.3) fL RDW Coeff of Yoshi 12.6 (11.5-14.5) % Plt Count 150 (130-400) K/uL MPV 10.2 (7.4-10.4) fL Immature Gran % (Auto) 0.2 % Neut % (Auto) 51.0 % Lymph % (Auto) 34.4 % Cloud % (Auto) 10.5 % Eos % (Auto) 3.5 % Baso % (Auto) 0.4 % Immature Gran # (Auto) 0.02 (0.00-0.02) K/uL Neut # (Auto) 5.06 (1.4-6.5) K/uL Lymph # (Auto) 3.41 H (1.2-3.4) K/uL Cloud # (Auto) 1.04 H (0.11-0.59) K/uL Eos # (Auto) 0.35 (0-0.5) K/uL Baso # (Auto) 0.04 (0-0.2) K/uL PT (9.0-12.0) Seconds INR (0.9-1.1) APTT (21.0-31.0) Seconds PTT Ratio D-Dimer 1150 H* (0-500) ug/L FEU Sodium 137 (136-145) mmol/L Potassium 3.9 (3.5-5.1) mmol/L Chloride 103 (98-107) mmol/L Carbon Dioxide 31 (21-32) mmol/L Anion Gap 3.0 (3-11) BUN 14 (7-18) mg/dl Creatinine 0.90 (0.6-1.4) mg/dl Est Cr Clr Drug Dosing 116.8 ml/min Est GFR ( Amer) 105.7 Est GFR (Non-Af Amer) 91.2 BUN/Creatinine Ratio 15.0 (10-20) Glucose 179 H (70-99) mg/dl Calcium 8.4 L (8.5-10.1) mg/dl Magnesium 1.5 L (1.8-2.4) mg/dl Total Bilirubin 0.4 (0.2-1) mg/dl AST 39 H (15-37) U/L ALT 76 (12-78) U/L Alkaline Phosphatase 109 (45-117) U/L Troponin I < 0.015 (0-0.045) ng/ml Total Protein 7.0 (6.4-8.2) gm/dl Albumin 3.5 (3.4-5.0) gm/dl Globulin 3.5 (2.5-4.0) gm/dl Albumin/Globulin Ratio 1.0 (0.9-2) Lipase 132 (73-393) U/L 02/12/19 Range/Units 05:34 WBC (4.8-10.8) K/uL RBC (4.7-6.1) M/uL Hgb (14.0-18.0) g/dL Hct (42-52) % MCV (80-100) fL MCH (25-34) pg MCHC (32-36) g/dL RDW Std Deviation (36.4-46.3) fL RDW Coeff of Yoshi (11.5-14.5) % Plt Count (130-400) K/uL MPV (7.4-10.4) fL Immature Gran % (Auto) % Neut % (Auto) % Lymph % (Auto) % Cloud % (Auto) % Eos % (Auto) % Baso % (Auto) % Immature Gran # (Auto) (0.00-0.02) K/uL Neut # (Auto) (1.4-6.5) K/uL Lymph # (Auto) (1.2-3.4) K/uL Cloud # (Auto) (0.11-0.59) K/uL Eos # (Auto) (0-0.5) K/uL Baso # (Auto) (0-0.2) K/uL PT 10.3 (9.0-12.0) Seconds INR 1.0 (0.9-1.1) APTT 25.3 (21.0-31.0) Seconds PTT Ratio 0.9 D-Dimer (0-500) ug/L FEU Sodium (136-145) mmol/L Potassium (3.5-5.1) mmol/L Chloride (98-107) mmol/L Carbon Dioxide (21-32) mmol/L Anion Gap (3-11) BUN (7-18) mg/dl Creatinine (0.6-1.4) mg/dl Est Cr Clr Drug Dosing ml/min Est GFR ( Amer) Est GFR (Non-Af Amer) BUN/Creatinine Ratio (10-20) Glucose (70-99) mg/dl Calcium (8.5-10.1) mg/dl Magnesium (1.8-2.4) mg/dl Total Bilirubin (0.2-1) mg/dl AST (15-37) U/L ALT (12-78) U/L Alkaline Phosphatase (45-117) U/L Troponin I (0-0.045) ng/ml Total Protein (6.4-8.2) gm/dl Albumin (3.4-5.0) gm/dl Globulin (2.5-4.0) gm/dl Albumin/Globulin Ratio (0.9-2) Lipase (73-393) U/L Imaging Data Radiologist's Impression: Radiology results as stated below per my review and the radiologist's interpretation: CT angio chest dissec wo/w con CT DOSE: 2173.95 mGy.cm HISTORY: Pain back pain into chest, recent cath/ablation TECHNIQUE: Multiaxial CT images of the chest, abdomen, and pelvis were performed both before and after the intravenous administration of contrast to evaluate the aorta. Maximal intensity projection images were also obtained. A dose lowering technique was utilized adhering to the principles of ALARA. COMPARISON STUDY: None. FINDINGS: The thoracic aorta is normal in course and caliber. Findings of acute pulmonary emboli involving the distal left main pulmonary artery extending into components of the left lower as well as left upper lobe distributions. There are no significant right sided filling defects. The lung specifically are generally clear. No evidence for focal infiltrate. IMPRESSION: 1. Study is positive for acute pulmonary emboli involving the distal left main pulmonary artery as well as the left lower and left upper lobe distributions proximally. 2. Lungs are considered clear with no focal infiltrate. 3. Negative thoracic aorta. The above report was generated using voice recognition software. It may contain grammatical, syntax or spelling errors. Electronically signed by: Rivera Mejia M.D. 02/12/2019 6:41 AM XR chest 1V portable CLINICAL HISTORY: Atypical chest pain COMPARISON STUDY: 01/12/2019 FINDINGS: The heart is at the upper limits of normal in size. There is no failure. There is no focal pulmonary consolidation. There are no pleural effusions. IMPRESSION: No active disease in the chest. Electronically signed by: Heriberto Rivera M.D. 02/12/2019 6:30 AM ECG Data Attestation: I personally reviewed and interpreted this ECG as follows: Indication: chest pain Rate (beats per minute): 74 Rhythm: normal sinus Findings: + other (Normal axis. Normal intervals.); no acute ischemic change and no ectopy Blood Pressure Blood Pressure Findings: Normal blood pressure Blood Pressure Disposition: further management by hospitalist [facility] Narrative Patient presenting with back and chest pain and initial differential diagnosis also included acute vascular pathology. Patient's labs reassuring. Review of EMR showed recent cardiac catheterization with normal coronary arteries and a reassuring echo with a normal LVEF. Patient hemodynamically stable despite still reporting pain. Patient did report some improvement following aspirin and nitro administration from EMS. Patient given additional IV pain medication here when labs were drawn and orders placed. Patient sent for CT angiography of the chest which revealed PE. Patient made aware of all results and need for additional evaluation and treatment. Heparin bolus and drip started after discussion with pharmacy. Case discussed with hospitalist for additional evaluation and management. Impression & Plan Pulmonary embolism, Chest pain, Back pain Critical Care Time I have personally spent 45 minutes of critical care time in the direct management of this patient. This includes bedside care, interpretation of diagnostic studies, and testing, discussion with consultants, patient, and family members, and other required patient management activities. This 45 minutes is in excess of all separately billable procedures. Critical Care Time: Yes Total Critical Care Time: 45 Discharge Plan Visit Data Chief Complaint: Chest Pain Stated Complaint: CHEST PAIN ED Provider: Danuta Tripp Discharge Problem: Pulmonary embolism, Chest pain, Back pain Patient Disposition: Being Evaluated by Hospitalist Condition: Good Forms Stand Alone Forms: Call Back Authorization, [facility] Prescriptions Prescriptions: No Action metoprolol succinate 25 mg Tablet Extended Release 24 Hr 37.5 mg PO QAM Qty: 45 RF: 0 multivitamin Tablet 1 tab PO QPM RF: 0 metformin 500 mg Tablet 500 mg PO BID RF: 0 cetirizine [Zyrtec] 10 mg Tablet 10 mg PO QAM RF: 0 aspirin 81 mg Tablet,Delayed Release (Dr/Ec) 81 mg PO QAM RF: 0 acetaminophen [Tylenol Extra Strength] 500 mg Tablet 500 - 1,000 mg PO Q6H PRN (Reason: Pain) RF: 0 potassium 99 mg Tablet 99 mg PO QPM RF: 0 ascorbic acid (vitamin C) [Vitamin C] 500 mg Tablet 500 mg PO BID RF: 0 sertraline 50 mg Tablet 50 mg PO QPM RF: 0 cholecalciferol (vitamin D3) [Vitamin D3] 1,000 unit Tablet 1,000 unit PO BID RF: 0 calcium carbonate-vitamin D3 [Calcium 600 + D(3)] 600 mg(1,500mg) -400 unit Tablet 1 tab PO BID RF: 0 Basaglar KwikPen U-100 Insulin 100 unit/mL (3 mL) Insulin Pen 10 unit SUBCUT QPM RF: 0 omeprazole 20 mg Tablet,Delayed Release (Dr/Ec) 20 mg PO QAM RF: 0 omega 9-dmu-fyj-fish oil [Fish Oil] 1,000 mg (120 mg-180 mg) Capsule 1 cap PO BID RF: 0 atorvastatin [Lipitor] 40 mg Tablet 60 mg PO DAILY RF: 0 ciclopirox [Loprox (as olamine)] 0.77 % Cream 1 applic TOPICAL Q12H PRN (Reason: Rash) RF: 0 Referrals Referrals: Shonda Forbes MD [Primary Care Provider] - Discharge Problem: Pulmonary embolism Qualifiers: Pulmonary embolism type: unspecified Chronicity: acute Acute cor pulmonale pres ence: without acute cor pulmonale Qualified Code(s): I26.99 - Other pulmonary embolism without acute cor pulmonale Chest pain Qualifiers: Chest pain type: unspecified Qualified Code(s): R07.9 - Chest pain, unspecified Back pain Qualifiers: Back pain location: thoracic back pain Chronicity: acute Back pain laterality: left Qualified Code(s): M54.6 - Pain in thoracic spine The scribe's documentation has been prepared under my direction and personally reviewed by me in its entirety. I confirm that the note above accurately reflects all work, treatment, procedures, and medical decision making performed by me.
--- NOTE | 2019-02-12 08:57 | History & Physical Report ---
Date of Service February 12, 2019 Assessment & Plan (1) Pulmonary embolism: No prior history of thromboembolic disease Pulmonary embolus identified at left pulmonary artery and proximal takeoffs for left upper lobe and left lower lobe Sedentary at home status post SVT ablation 02/06/2019 Heparin drip initiated Discussed with cardiology -they would prefer outpatient Eliquis if covered by insurance No hemodynamic instability; no hypoxia Admit to telemetry for on weight-based heparin protocol Check lower extremity duplex to rule out DVT (2) Hypertension: Do your home dose of Toprol-XL at 37.5 mg p.o. daily Hemodynamically stable Monitor on telemetry (3) GERD (gastroesophageal reflux disease): Continue home omeprazole No recent complications (4) Diabetes mellitus: Continue Lantus with home dose Initiate NovoLog sliding scale insulin * Glycemic consult with pharmacy * Most recent hemoglobin A1c was September 2018; * Repeat hemoglobin A1c with a.m. labs Hold metformin secondary to CTA with contrast (5) Obstructive sleep apnea on CPAP: Recently seen by Shruthi Mathews PA-C September 2018 Home CPAP with settings of 17 cm H2O No hypoxia Continue CPAP at at bedtime and as needed (6) Hyperlipidemia: Atorvastatin (7) SVT (supraventricular tachycardia): Status post ablation 02/06/2019 Currently normal sinus rhythm with a rate in 60s Admit to telemetry (8) Morbid obesity with BMI of 40.0-44.9, adult: BMI 44.4 needs weight loss (9) DVT prophylaxis: Heparin drip initiated for new onset pulmonary embolus Check lower extremity duplex to rule out DVT Bedrest until DVT is ruled out No mechanical prophylaxis untill DVT is ruled out Please refer to Dr. Shipley's addendum for further recommendations History of Present Illness Attending: Dr. Shipley Mr. Adler presents with back pain that radiates into his chest. He has a past medical history of diabetes mellitus type 2 on metformin and Lantus, recent SVT ablation, hypertension, GERD, hyperlipidemia, depression, allergic rhinitis, o bstructive sleep apnea on CPAP. This is a 63-year-old male that presents with pain that began at 0400 this morning in his back and radiated to his left chest just lateral to the sternum and at about intercostal space #5. The patient reports that this awoke him from sleep. He had no shortness of breath at the time and no awareness of arrhythmias. In discussion with his it was decided they would come to the emergency room to be evaluated inasmuch as the patient just had an SVT flutter ablation 02/06/[address] Antunez. Patient was found to have a pulmonary embolus at the left pulmonary artery with some proximal distribution to left upper lobe and left lower lobe segmental branches. Patient has been hemodynamically stable and is being started on a heparin drip. Patient was also found to have hypomagnesemia and was given 1 g of magnesium sulfate IV in the emergency department. Patient denies any shortness of breath, tachyarrhythmia, hemoptysis, sweats, rigors, nausea, vomiting. Patient denies any previous thromboembolic disease. Patient states that since his procedure on 02/06/2019 he has been rather sedentary and has been sleeping a significant amount of the t ayaz. Patient denies any asymmetrical edema of the lower extremities. He further denies any calf or thigh pain. He has no other acute complaints at this time Primary Care Provider: Shonda Forbes MD Allergies Allergy/AdvReac Type Severity Reaction Status Date / Time amoxicillin Allergy Unknown RED AND Verified 02/12/19 05:29 START TO SWELL UP Influenza Virus Vaccines Allergy Unknown "MAKES ME Verified 02/12/19 05:29 SICKER" streptomycin Allergy Unknown EYES BURN Verified 02/12/19 05:29 Home Medications Home Medications Medication Instructions Recorded Confirmed Type Tomasa BellamyDayne U-100 Insulin 10 unit SUBCUT QPM 10/19/18 02/12/19 History acetaminophen [Tylenol Extra 500 - 1,000 mg PO Q6H PRN 10/19/18 02/12/19 History Strength] ascorbic acid (vitamin C) [Vitamin 500 mg PO BID 10/19/18 02/12/19 History C] aspirin 81 mg PO QAM 10/19/18 02/12/19 History calcium carbonate-vitamin D3 1 tab PO BID 10/19/18 02/12/19 History [Calcium 600 + D(3)] cetirizine [Zyrtec] 10 mg PO QAM 10/19/18 02/12/19 History cholecalciferol (vitamin D3) 1,000 unit PO BID 10/19/18 02/12/19 History [Vitamin D3] metformin 500 mg PO BID 10/19/18 02/12/19 History multivitamin 1 tab PO QPM 10/19/18 02/12/19 History omega 4-[id number]-[id number]-fish oil [Fish Oil] 1 cap PO BID 10/19/18 02/12/19 History omeprazole 20 mg PO QAM 10/19/18 02/12/19 History potassium 99 mg PO QPM 10/19/18 02/12/19 History sertraline 50 mg PO QPM 10/19/18 02/12/19 History atorvastatin [Lipitor] 20 mg PO QPM 01/21/19 02/12/19 History ciclopirox [Loprox (as olamine)] 1 applic TOPICAL Q12H PRN 01/21/19 02/12/19 History metoprolol succinate 37.5 mg PO QAM #45 tab 02/06/19 02/12/19 Rx Past Med/Surg History Medical History Chest pain Evaluated at [facility] ED 01/12/19. Found to be in SVT at 180bpm. Had OP cardiac cath 01/21 showing normal coronary arteries. Depression Diabetes mellitus, type 2 IDDM GERD (gastroesophageal reflux disease) Hearing deficit History of colon polyps Hyperlipidemia Hypertension Morbid obesity Paroxysmal SVT (supraventricular tachycardia) recent ER visit [facility] 01/12/19 Sleep apnea cpap Surgical History History of cardiac cath 01/21/19 - [facility] -arrhythmia + cp - no stents/angioplasty - follows w/ Dr. Aj History of colonoscopy History of ear surgery "paper patch applied to ruptured eardrum" History of esophagogastroduodenoscopy (EGD) History of hand surgery left hand pinky finger History of tooth extraction all top teeth removed Family History Sister Family history of diabetes mellitus Mother Family history of diabetes mellitus Grandmother (Maternal) Family history of diabetes mellitus Grandfather (Maternal) Family hx of colon cancer Other No family history of adverse response to anesthesia Social History Preferred Language: [place] Communication Ability: Effective Tie Layer Required: Yes Beliefs That Will Affect Care: None Current Living Situation: Spouse Other Information That Helps Us Care for You: No Feels Safe at Home: Yes Safety Concerns: Feels Safe At This Time Smoking Status: Former smoker Tobacco Type: cigarettes Age Started Using Tobac co: 19 Age Quit Using Tobacco: 23 Smoking End Date: 1979 Second Hand Exposure: Yes (work environment) Hx Alcohol Use: Yes Alcohol type: hard liquor Hx Substance Use: No Review of Systems Review of Systems: All systems reviewed & are unremarkable except as noted in HPI & below Physical Exam Physical Exam: GENERAL : No acute distress EYES: No icterus, gaze conjugate. PERRL NOSE: No evidence of epistaxis MOUTH: No lesions or candidiasis. All upper teeth extracted. No dentures in place on the upper. NECK: Supple. No evidence of carotid bruits LUNGS: CTA B/L, no wheezes, rales or rhonchi. HEART: Regular, rate controlled in the 60s. No appreciation of murmurs gallops or rubs ABDOMEN: Soft, NT, ND, BS Present. No tenderness to deep palpation. No g uarding EXTREMITIES: No LE edema, pedal pulses intact. Right calf appears to be larger in diameter than left calf but no apparent edema. No Homans sign or tenderness with palpation to either gastrocnemius region NEURO: A&OX3. No neurological deficits identified Results & Data Vital Signs (Past 12 Hours) Vital Signs Temp Pulse Pulse Resp BP BP Pulse Ox 02/12/19 07:06 67 18 133/91 95 02/12/19 06:22 66 20 139/96 96 02/12/19 06:20 66 18 95 02/12/19 06:00 66 15 127/95 94 02/12/19 05:50 67 17 92 02/12/19 05:40 65 18 96 02/12/19 05:30 70 20 131/93 97 02/12/19 05:20 70 21 96 02/12/19 05:10 71 18 94 02/12/19 05:06 74 22 95 02/12/19 05:01 75 21 131/87 94 02/12/19 04:59 36.7 C 79 18 131/87 97 Laboratory Results 02/12/19 05:34 02/12/19 05:34 Laboratory Tests 02/12/19 05:34 Potassium 3.9 Glucose 179 H Calcium 8.4 L Magnesium 1.[address] angio chest dissec wo/w con CT DOSE: 2173.95 mGy.cm HISTORY: Pain back pain into chest, recent cath/ablation TECHNIQUE: Multiaxial CT images of the chest, abdomen, and pelvis were performed both before and after the intravenous administration of contrast to evaluate the aorta. Maximal intensity projection images were also obtained. A dose lowering technique was utilized adhering to the principles of ALARA. COMPARISON STUDY: None. FINDINGS: The thoracic aorta is normal in course and caliber. Findings of acute pulmonary emboli involving the distal left main pulmonary artery extending into components of the left lower as well as left upper lobe distributions. There are no significant right sided filling defects. The lung specifically are generally clear. No evidence for focal infiltrate. IMPRESSION: 1. Study is positive for acute pulmonary emboli involving the distal left main pulmonary artery as well as the left lower and left upper lobe distributions proximally. 2. Lungs are considered clear with no focal infiltrate. 3. Negative thoracic aorta. Electronically signed by: Rivera Mejia M.D. 02/12/2019 6:41 AM ECG Additional Comments: Echocardiogram 02/12/2019 at 05:01 Vent. rate 74 BPM LA interval 176 ms QRS duration 82 ms QT/QTc 396/439 ms P-R-T axes 43 20 26 Normal sinus rhythm Normal ECG When compared with ECG of 06-FEB-2019 15:41, No significant change was found Code Status & VTE Plan VTE Prophylaxis Plan VTE Prophylaxis will be ordered: Yes Reason for no VTE mechanical prophylaxis: Contraindicated (No mechanical prophylaxis pending lower extremity duplex) Critical Care Time Critical Care Time: No Prolonged Care Time Prolonged Care Time: No Supervising Physician Co-Signing Physician Notes Attending Admit Note & Attestation - Patient seen/examined, chart reviewed, care plan d/w MARILU Hernandez. I agree w/ the woodard components of his admission documentation. 63yo male with morbid obesity, recent SVT ablation on 02/06/[address] Antunez, T2DM, HTN - presenting with acute onset of back/chest pain 2nd to left-sided PEs. Patient reports being quite sedentary since his ablation procedure. Denies personal or family h/o VTE. No recent travels. During my visit he complains of "dull pain" over the back/left chest. Denies orthopnea or dyspnea at rest. O2 sats have been stable in RA since admission. PMH, PSH, allergies, meds, sochx, famhx, ros - reviewed VSS, afebrile, O2 sats in RA wnl gen - obese, NAD, looks tired mouth - MMM neck - no JVD heart - RRR, s1 s2, no murmur lungs - decreased BS bases otherwise CTA b/l abd - soft, obese, NT, BS+, no HSM ext - trace edema b/l labs reviewed CTA chest - left distal main pulmonary PEs with extension into the LB and LLL branches; no right-sided PEs A/P: 63yo male - recent ablation procedure for SVT on 02/06/19 - presenting with acute left-sided PEs. This is a provoked VTE event given the recent surgical procedure and the subsequent immobility at home. No family h/o VTE. No other VTE risk factors. No other symptoms to suggest occult malignancy. Agree with heparin infusion for now. Dopplers of legs negative for DVT. No clinical signs of right heart strain. 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 He is 135kg. May need to consider coumadin given the above. Will d/w cardiology tomorrow about final choice for oral anticoagulant. Bo Shipley MD (1) Diabetes mellitus Diabetes mellitus type: type 2 Diabetes mellitus group home insulin use: with group home use Diabetes mellitus complication status: without complication Q ualified Code(s): E11.9 - Type 2 diabetes mellitus without complications; Z79.4 - prison (current) use of insulin (2) Hyperlipidemia Hyperlipidemia type: mixed hyperlipidemia Qualified Code(s): E78.2 - Mixed hyperlipidemia (3) Pulmonary embolism Acute cor pulmonale presence: without acute cor pulmonale Chronicity: acute Pulmonary embolism type: unspecified Qualified Code(s): I26.99 - Other pulmonary embolism without acute cor pulmonale (4) GERD (gastroesophageal reflux disease) Esophagitis presence: esophagitis presence not specified Qualified Code(s): K21.9 - Gastro-esophageal reflux disease without esophagitis (5) Hypertension Hypertension type: essential hypertension Qualified Code(s): I10 - Essential (primary) hypertension
--- NOTE | 2019-02-12 09:49 | Ultrasound Report ---
US venous doppler LE BI CLINICAL HISTORY: Acute pulmonary embolism COMPARISON STUDY: No previous studies for comparison. FINDINGS: Real-time and color flow Doppler imaging were performed. Flow was seen within the femoral, popliteal and calf veins with no intraluminal thrombus demonstrated. The saphenous vein is patent. IMPRESSION: No evidence of lower extremity DVT. Electronically signed by: Heriberto Rivera M.D. 02/12/2019 9:48 AM
[2019-02-12] MEDS ORDERED: DEXTROSE 50% 50 ML SYRINGE IV PRN (11:27)
[2019-02-12] MEDS ORDERED: GLUCAGON FOR INJ 1 MG VIAL SQ PRN (11:27)
[2019-02-12] MEDS ORDERED: POLYETHYLENE (MIRALAX) 17 GM PACK PO PRN (11:27)
[2019-02-12] MEDS ORDERED: GLUCOSE 10 TABS/TUBE PO PRN (11:27)
[2019-02-12] MEDS ORDERED: CARBOHYDRATES FOR HYPOGLYCEMIA PO PRN (11:27)
[2019-02-12] MEDS ORDERED: ONDANSETRON INJ 2 MG/ML 2 ML VIAL IV PRN (11:27)
[2019-02-12] MEDS ORDERED: ACETAMINOPHEN 500 MG TAB PO PRN (11:27)
[2019-02-12] MEDS ORDERED: GLUCOSE 40% GEL 15 GM TUBE PO PRN (11:27)
[2019-02-12] MEDS ORDERED: ASPIRIN 81 MG ECTAB PO SCH (11:27)
--- NOTE | 2019-02-12 11:45 | Cardiology Progress Note ---
Date of Service February 12, 2019 Subjective pt seen in the ED-full consult dicated Results & Data Vital Signs (Past 12 Hours) Vital Signs Temp Pulse Pulse Resp BP BP Pulse Ox 02/12/19 11:21 63 16 159/107 H 95 02/12/19 09:18 16 127/86 95 02/12/19 08:57 36.5 C 66 20 127/92 96 02/12/19 07:06 67 18 133/91 95 02/12/19 06:22 66 20 139/96 96 02/12/19 06:20 66 18 95 02/12/19 06:00 66 15 127/95 94 02/12/19 05:50 67 17 92 02/12/19 05:40 65 18 96 02/12/19 05:30 70 20 131/93 97 02/12/19 05:20 70 21 96 02/12/19 05:10 71 18 94 02/12/19 05:06 74 22 95 02/12/19 05:01 75 21 131/87 94 02/12/19 04:59 36.7 C 79 18 131/87 97
[2019-02-12] MEDS ORDERED: Heparin IV Standard *NO* Bolus IV SCH ×2 (12:00)
[2019-02-12] MEDS ORDERED: PHARMACY GLYCEMIC MGMT CONSULT PRN (12:01)
[2019-02-12] MEDS: ASCORBIC ACID 500 MG TAB PO SCH ×2 (12:45→20:44)
[2019-02-12] MEDS: CHOLECALCIFEROL 1,000 UNITS TAB PO SCH ×2 (12:45→20:43)
[2019-02-12] MEDS: OMEGA-3 (PURIFIED FISH OIL) 1 GM CAP PO SCH ×2 (12:46→20:43)
[2019-02-12] MEDS: METOPROLOL SUCC 25MG EXT REL TAB PO SCH (12:46)
[2019-02-12] MEDS: PANTOprazole 40 MG TAB PO SCH (12:46)
[2019-02-12] MEDS: CETIRIZINE HCL 10 MG TABLET PO SCH (12:46)
[2019-02-12] MEDS: CALCIUM 600MG + VIT D 400 IU TAB PO SCH ×2 (12:46→20:43)
[2019-02-12] MEDS: INSULIN ASPART 100 UNITS/ML 3 ML PEN SC SCH ×3 (13:03→20:41)
[2019-02-12] MEDS: Heparin Adult STANDARD Wt-Based Dextrose 5% 25,000 units/500 mL IV SCH ×2 (13:18→23:02)
--- NOTE | 2019-02-12 14:41 | Pharmacy Report ---
Glycemic Control Consultation - Date of Service February 12, 2019 - Scope Scope: Glycemic Pharmacist consulted by Yo Hernandez PA-C on 02/12 for glycemic control and to write orders per [facility] inpatient glycemic control protocol - Objective Weight: 136.5 kg Accuchecks BSG (last 24hrs): 02/12/19 02/12/19 05:34 11:51 Glucose 179 H POC Glucose 172 H Laboratory Data (last 24hrs): 02/12/19 05:34 Potassium 3.9 Carbon Dioxide 31 Anion Gap 3.0 Creatinine 0.90 Est Cr Clr Drug Dosing 116.8 - Recent Pertinent Medications Outpatient Anti-diabetic Regimen: * Basaglar 10 units SQ PM, Metformin HCl 500mg PO BID * A1c = 7.3 % 12/31/18 (found on [employer]) Risk Factors for Insulin Resistance: * IVF: Heparin gtt * Diet: T2DM - Assessment & Plan Assessment & Plan: ASSESSMENT: * Mr Adler presented to the ED for persistent chest pain. Subsequently found to the have PE in left pulmonary artery. * Patient maintained on Lantus 10 units HS plus metformin at home. Well controlled T2DM. * Pt is maintained on oral antidiabetic agents as an outpatient * Oral agents are not recommended for inpatient use d/t drug interactions, changing PO intake, and difficulty titrating for acute hyper/hypoglycemia. ADA recommends re-initiating outpatient oral agents 1-2 days prior to discharge if/when appropriate if they were held on admission. * Will hold oral agents for admission and utilize SQ basal bolus insulin regimen which is the recommended regimen for inpatient glycemic control. * Increase Lantus slightly since metformin will be held. Start Novolog weight- baed stress of 1-2 (looser parameters chosen secondary to good control with little insulin at home plus body habitus). PLAN FOR INPATIENT GLYCEMIC CONTROL: * Holding outpatient oral diabetes medications - pt received contrast for imaging * Basal insulin * Lantus 13 units SQ HS - ~20% increase from home regimen. This is closer to 0.1 units/kg and should help to decrease his fasting AM BSG. * Bolus insulin * NovoLog per scale ACHS * Goal Range: Low 110 mg/dL - High 140 mg/dL * Correction Factor: 20 mg/dL/unit * Nutritional / Prandial insulin per carb ratio of 1 unit per 7 grams CHO consumed - this is in between weight-based stress of 1 - 2. * Please note that the plan above was derived based on current level of insulin resistance and hospital stress. These recommendations are appropriate for inpatient admission only. Plan of care upon discharge will need to be reassessed to avoid potential outpatient hypo/hyperglycemia. Thank you.
[2019-02-12 15:18] LABS: Partial Thromboplastin Ratio 1.8
[2019-02-12 15:22] LABS: Partial Thromboplastin Time 47.6 Seconds (21.0-31.0)
[2019-02-12] MEDS ORDERED: [UNRECOGNIZED DRUG - REMARK] SCH (16:00)
[2019-02-12] MEDS: INSULIN GLARGINE SOLOSTAR 100 UNITS/ML 3 ML PEN SQ SCH (20:41)
[2019-02-12] MEDS: ATORVASTATIN 20 MG TAB PO SCH (20:44)
[2019-02-12] MEDS: SERTRALINE HCL 50 MG TABLET PO SCH (20:44)
[2019-02-12] MEDS: MULTIVITAMIN TAB PO SCH (20:44)
--- NOTE | 2019-02-12 22:44 | Consultation Report ---
DATE OF CONSULTATION: 02/12/2019 DATE OF CONSULT: 02/12/2019 REFERRING PHYSICIAN: Hospitalist group. REASON FOR CONSULTATION: Acute PE, known cardiac issues. HISTORY OF PRESENT ILLNESS: Mr. Adler is known to me from the office and most recently having an AVNRT partially successful ablation last week without any complications. He was told not to do any heavy lifting or squatting for 1 week's time. Apparently over the last few weeks, he has actually been living a more sedentary life. In addition, the week before his electrophysiology ablation, he had a cardiac catheterization that was negative for any coronary disease. He woke up this morning with acute sudden chest pain radiating to the back. It was persisting and his insisted on going to the Emergency Room, so they called 911 and brought into the Emergency Room where a CAT scan revealed that he has significant acute pulmonary emboli in the distal left main, pulmonary artery as well as the left lower lung lobe and left upper lobe proximal regions. He denies any lightheadedness, dizziness, palpitations, shortness of breath. He denies any history of having blood clots in the past. He denies noticing any leg swelling as well. 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 PAST SURGICAL HISTORY: Cardiac catheterization 2 weeks ago and electrophysiology study with ablation 1 week ago. ALLERGIES: Amoxicillin and flu vaccine MEDICATIONS: Home medications are reviewed ER MEDICATIONS: He was given heparin bolus and started on heparin drip. SOCIAL HISTORY: Rare alcohol. Smoking former FAMILY HISTORY: Negative for any significant coronary artery disease. REVIEW OF SYSTEMS: All other 10 complete review of systems are reviewed and essentially negative at this time. PHYSICAL EXAMINATION: VITAL SIGNS: Blood pressure 127/86, heart rate 67, respirations 16, oxygen saturations 95% on room air, temperature 36.7 degrees Celsius. GENERAL: He is awake, alert and oriented x3, in no acute distress, reclined on the stretcher with his at the side. HEENT: Normocephalic, atraumatic. Extraocular motions intact. Sclerae is nonicteric. Mucous membranes are moist. NECK: Supple, no carotid bruits appreciated. No JVD. Carotid upstrokes normal. CARDIOVASCULAR: Normal S1, S2, regular rate and rhythm, no murmur appreciated. No palpable heave or thrill. PULMONARY: Clear to auscultation bilaterally. No wheezes, rales or rhonchi. ABDOMEN: Positive bowel sounds, soft, nontender. EXTREMITIES: No clubbing or cyanosis bilateral fingers. No edema in the bilateral extremities. Peripheral pulses intact. no edema. Possible slight increased swelling in the right lower extremity. Peripheral pulses intact. NEUROLOGIC: Grossly intact. SKIN: Grossly intact. PERTINENT TESTING: EKG: Sinus rhythm, 74 beats per minute. Lower extremity Dopplers negative for DVTs. CT angio of the chest: Positive for an acute pulmonary emboli, and the distal left main pulmonary artery as well as the proximal portions of the left lower lobe and left upper lobe. Chest x-ray: Negative for anything acute. Hematology: WBC is 9.9, hemoglobin 10.3, hematocrit 38.7, platelets 150. D-dimers significantly positive for 1150. INR 1. Chemistry: Sodium 137, potassium 3.9, chloride 103, carbon dioxide 31, BUN 14, creatinine 0.9, glucose 174, calcium 8.4, magnesium 1.5, total bilirubin 0.4, AST 39, ALT 79, alkaline phosphatase 109, total protein 7, albumin 3.5, lipase 132. Troponin less than 0.015. IMPRESSION: 1. Acute pulmonary emboli of the left main pulmonary artery as well as the proximal portions of the left upper and left lower lobe. 2. Recent partially successful AVNRT ablation 1 week ago. 3. Recent cardiac catheterization about 3 weeks ago, normal coronary arteries. 4. Hypertension. 5. Hyperlipidemia. 6. Obstructive sleep apnea on CPAP. 7. Diabetes. 8. Morbid obesity. PLAN: Recommend admission with IV heparin drip for the next 24-48 hours with transition to hopefully a NOAC, ideally Eliquis if it is covered, otherwise Xarelto, would consider hypercoagulable workup and congenital genetic testing in the future as it seems pretty odd that this has happened so acutely after the procedure. It is not a typical complication, but it was closely a little bit more sedentary than his usual past. Okay to continue his home medications. His vital signs are stable and he is hemodynamically stable. Keep followup as scheduled with me. Monitor on telemetry. JEANNETTE
[2019-02-13 07:52] LABS: Basophils # (auto) 0.05 K/uL (0-0.2); Basophils % (auto) 0.6 %; Eosinophils # (auto) 0.33 K/uL (0-0.5); Eosinophils % (auto) 3.8 %; Hematocrit (blood only) 40.2 % (42-52); Hemoglobin 14.2 g/dL (14.0-18.0); Immature Granulocytes # (auto) 0.01 K/uL (0.00-0.02); Immature Granulocytes % (auto) 0.1 %; Lymphocytes # (auto) 4.11 K/uL (1.2-3.4); Lymphocytes % (auto) 47.5 %; Mean Corpuscular Hgb Conc 35.3 g/dL (32-36); Mean Corpuscular Volume 88.2 fL (80-100); Mean Platelet Volume 10.2 fL (7.4-10.4); Monocytes # (auto) 0.57 K/uL (0.11-0.59); Monocytes % (auto) 6.6 %; Neutrophils # (auto) 3.58 K/uL (1.4-6.5); Neutrophils % (auto) 41.4 %; Platelet Count 140 K/uL (130-400); RDW Coefficient of Variation 12.8 % (11.5-14.5); RDW Standard Deviation 41.1 fL (36.4-46.3); Red Blood Count 4.56 M/uL (4.7-6.1); White Blood Count 8.65 K/uL (4.8-10.8)
[2019-02-13 08:17] LABS: Partial Thromboplastin Ratio 1.7
[2019-02-13 08:20] LABS: Partial Thromboplastin Time 45.8 Seconds (21.0-31.0)
[2019-02-13 08:30] LABS: BUN Creatinine Ratio 12.1 (10-20); Calcium 8.9 mg/dl (8.5-10.1); Est GFR (African American) 102.9; Est GFR (Non-African American) 88.8; Magnesium 1.9 mg/dl (1.8-2.4); Potassium 4.5 mmol/L (3.5-5.1)
[2019-02-13 08:44] LABS: Estimated Average Glucose 171 mg/dl; Hemoglobin A1C 7.6 % (4.5-5.6)
[2019-02-13] MEDS ORDERED: ASPIRIN 81 MG ECTAB PO SCH (09:00)
[2019-02-13] MEDS: INSULIN ASPART 100 UNITS/ML 3 ML PEN SC SCH ×4 (09:04→20:05)
[2019-02-13] MEDS: METOPROLOL SUCC 25MG EXT REL TAB PO SCH (09:05)
[2019-02-13] MEDS: CETIRIZINE HCL 10 MG TABLET PO SCH (09:05)
[2019-02-13] MEDS: OMEGA-3 (PURIFIED FISH OIL) 1 GM CAP PO SCH ×2 (09:06→19:57)
[2019-02-13] MEDS: CALCIUM 600MG + VIT D 400 IU TAB PO SCH ×2 (09:06→19:56)
[2019-02-13] MEDS: ASCORBIC ACID 500 MG TAB PO SCH ×2 (09:06→19:58)
[2019-02-13] MEDS: CHOLECALCIFEROL 1,000 UNITS TAB PO SCH ×2 (09:07→19:57)
[2019-02-13] MEDS: PANTOprazole 40 MG TAB PO SCH (09:07)
[2019-02-13] MEDS ORDERED: HEPARIN IV BOLUS 4,000 UNITS in SYRINGE 0 ML IV ONE (09:15)
[2019-02-13] MEDS: Heparin Adult STANDARD Wt-Based Dextrose 5% 25,000 units/500 mL IV SCH (13:41)
--- NOTE | 2019-02-13 14:23 | Cardiology Progress Note ---
Date of Service February 13, 2019 Assessment & Plan (1) Pulmonary embolism on left: Subjective pt feeling better; no longer with chest pains; ambulating around the room without any chest pain or SOB, lightheadedness or dizziness Review of Systems Constitutional: no fever, no chills and no fatigue Respiratory: no dyspnea and no dyspnea on exertion Cardiovascular: as per Subjective / HPI; no chest pain, no dyspnea and no palpitations Gastrointestinal: no nausea and no vomiting Physical Exam Physical Exam: aaox3, NAD NC/AT, EOMI Supple No JVD Nrl S1/S2, No murmur CTA b/l no w/r/r soft nt/nd no LE edema b/l skin intact no focal deficits Results & Data Vital Signs (Past 12 Hours) Vital Signs Temp Pulse Pulse Resp BP Pulse Ox 02/13/19 12:07 36.6 C 69 18 139/98 97 02/13/19 08:00 57 L 02/13/19 06:51 36.8 C 61 19 128/84 95 02/13/19 05:27 59 L 18 95 02/13/19 04:00 37.0 C 60 18 135/77 96 02/13/19 02:57 63 16 97 Telemetry reviewed SR with some VPCs All lab results for today reviewed
[2019-02-13 15:38] LABS: Partial Thromboplastin Ratio 2.2
[2019-02-13 15:45] LABS: Partial Thromboplastin Time 60.4 Seconds (21.0-31.0)
[2019-02-13] MEDS ORDERED: WARFARIN SOD 10 MG TAB PO ONE (16:30)
[2019-02-13] MEDS: ATORVASTATIN 20 MG TAB PO SCH (19:56)
[2019-02-13] MEDS: MULTIVITAMIN TAB PO SCH (19:57)
[2019-02-13] MEDS: SERTRALINE HCL 50 MG TABLET PO SCH (19:57)
[2019-02-13] MEDS: INSULIN GLARGINE SOLOSTAR 100 UNITS/ML 3 ML PEN SQ SCH (20:06)
--- NOTE | 2019-02-13 20:53 | Hospitalist Progress Note ---
Date of Service February 13, 2019 Assessment & Plan (1) Pulmonary embolism: Provoked --- recent surgical procedure (nancy ablation) and then significant immobility following that procedure. No personal or family history of DVT/PE. Cost of novel agent quite prohibitive (over 200 dollars/month). Also, studies of novel agents have been in patients <120 kg weight. He is over 130 kg of weight. Safest option and cheapest option is coumadin. Start coumadin 10mg today. Cont heparin drip. may be candidate for lovenox injections later in his stay for bridging purposes. dopplers legs negative. updated at bedside today. (2) Hypertension: continue home meds controlled (3) GERD (gastroesophageal reflux disease): PPI (4) Diabetes mellitus: control adequate cont basal-bolus regimen as is for now (5) Obstructive sleep apnea on CPAP: CPAP at HS (6) Hyperlipidemia: cont statin agent (7) SVT (supraventricular tachycardia): s/p ablation procedure by Dr Antunez on 02/06/19 tele stable without dysrhythmia while here (8) Morbid obesity with BMI of 40.0-44.9, adult: BMI 43 needs weight loss (9) DVT prophylaxis: heparin drip if tele stable overnight can move to med/surg tomorrow Subjective mild pleuritic left chest pain at times but denies any dyspnea. eating fine. tele stable. no new issues. at bedside. monthly cost of eliquis - >$200 ! Review of Systems Constitutional: no fever Respiratory: no cough Cardiovascular: as per Subjective / HPI; no orthopnea and no paroxysmal nocturnal dyspnea Gastrointestinal: no abdominal pain Physical Exam Constitutional: well developed, well nourished and + obese; no acute distress ENMT: external ear and nose normal, oropharynx normal Respiratory: normal respiratory effort, lungs clear to auscultation Cardiovascular: RRR, no murmur, no edema Heart Sounds: normal S1 and normal S2 Vessels: posterior tibial pulses present and dorsalis pedis pulses present; no JVD Gastrointestinal (Abdomen): normal bowel sounds, soft, nontender, no hepatosplenomegaly Psychiatric: A+Ox3, euthymic affect Results & Data Vital Signs (Past 12 Hours) Vital Signs Temp Pulse Pulse Resp BP BP Pulse Ox 02/13/19 19:37 36.5 C 69 19 139/90 96 02/13/19 15:23 36.5 C 66 67 18 131/92 93 02/13/19 12:07 36.6 C 69 18 139/98 97 Laboratory Results Laboratory Results - last 24 hr 02/13/19 02/13/19 02/13/19 07:39 07:39 07:39 WBC 8.65 RBC 4.56 L Hgb 14.2 Hct 40.2 L MCV 88.2 MCH 31.1 MCHC 35.3 RDW Std Deviation 41.1 RDW Coeff of Yoshi 12.8 Plt Count 140 MPV 10.2 Immature Gran % (Auto) 0.1 Neut % (Auto) 41.4 Lymph % (Auto) 47.5 [place] % (Auto) 6.6 Eos % (Auto) 3.8 Baso % (Auto) 0.6 Immature Gran # (Auto) 0.01 Neut # (Auto) 3.58 Lymph # (Auto) 4.11 H [place] # (Auto) 0.57 Eos # (Auto) 0.33 Baso # (Auto) 0.05 APTT PTT Ratio Sodium 139 Potassium 4.5 D Chloride 104 Carbon Dioxide 29 Anion Gap 6.0 BUN 11 Creatinine 0.92 Est Cr Clr Drug Dosing 113.0 Est GFR ( Amer) 102.9 Est GFR (Non-Af Amer) 88.8 BUN/Creatinine Ratio 12.1 Glucose 137 H POC Glucose Estimat Average Glucose 171 Hemoglobin A1c 7.6 H Calcium 8.9 Magnesium 1.9 02/13/19 02/13/19 02/13/19 07:39 07:45 11:43 WBC RBC Hgb Hct MCV MCH MCHC RDW Std Deviation RDW Coeff of Yoshi Plt Count MPV Immature Gran % (Auto) Neut % (Auto) Lymph % (Auto) [place] % (Auto) Eos % (Auto) Baso % (Auto) Immature Gran # (Auto) Neut # (Auto) Lymph # (Auto) [place] # (Auto) Eos # (Auto) Baso # (Auto) APTT 45.8 H* PTT Ratio 1.7 Sodium Potassium Chloride Carbon Dioxide Anion Gap BUN Creatinine Est Cr Clr Drug Dosing Est GFR ( Amer) Est GFR (Non-Af Amer) BUN/Creatinine Ratio Glucose POC Glucose 139 H 166 H Estimat Average Glucose Hemoglobin A1c Calcium Magnesium 02/13/19 02/13/19 02/13/19 15:05 16:09 20:04 WBC RBC Hgb Hct MCV MCH MCHC RDW Std Deviation RDW Coeff of Yoshi Plt Count MPV Immature Gran % (Auto) Neut % (Auto) Lymph % (Auto) [place] % (Auto) Eos % (Auto) Baso % (Auto) Immature Gran # (Auto) Neut # (Auto) Lymph # (Auto) [place] # (Auto) Eos # (Auto) Baso # (Auto) APTT 60.4 H* PTT Ratio 2.2 Sodium Potassium Chloride Carbon Dioxide Anion Gap BUN Creatinine Est Cr Clr Drug Dosing Est GFR ( Amer) Est GFR (Non-Af Amer) BUN/Creatinine Ratio Glucose POC Glucose 163 H 151 H Estimat Average Glucose Hemoglobin A1c Calcium Magnesium (1) Diabetes mellitus Diabetes mellitus complication status: without complication Diabetes mellitus residential insulin use: with residential use Diabetes mellitus type: type 2 Qualified Code(s): E11.9 - Type 2 diabetes mellitus without complications; Z79.4 - retirement (current) use of insulin (2) Hyperlipidemia Hyperlipidemia type: mixed hyperlipidemia Qualified Code(s): E78.2 - Mixed hyperlipidemia (3) Pulmonary embolism Acute cor pulmonale presence: without acute cor pulmonale Chronicity: acute Pulmonary embolism type: unspecified Qualified Code(s): I26.99 - Other pulmonary embolism without acute cor pulmonale (4) GERD (gastroesophageal reflux disease) Esophagitis presence: esophagitis presence not specified Qualified Code(s): K21.9 - Gastro-esophageal reflux disease without esophagitis (5) Hypertension Hypertension type: essential hypertension Qualified Code(s): I10 - Essential (primary) hypertension
[2019-02-14] MEDS: Heparin Adult STANDARD Wt-Based Dextrose 5% 25,000 units/500 mL IV SCH ×2 (02:00→14:30)
[2019-02-14 07:16] LABS: Basophils # (auto) 0.03 K/uL (0-0.2); Basophils % (auto) 0.3 %; Eosinophils # (auto) 0.32 K/uL (0-0.5); Eosinophils % (auto) 3.7 %; Hematocrit (blood only) 39.2 % (42-52); Hemoglobin 14.4 g/dL (14.0-18.0); Immature Granulocytes # (auto) 0.01 K/uL (0.00-0.02); Immature Granulocytes % (auto) 0.1 %; Lymphocytes # (auto) 4.24 K/uL (1.2-3.4); Lymphocytes % (auto) 48.7 %; Mean Corpuscular Hgb Conc 36.7 g/dL (32-36); Mean Corpuscular Volume 85.8 fL (80-100); Monocytes # (auto) 0.75 K/uL (0.11-0.59); Monocytes % (auto) 8.6 %; Neutrophils # (auto) 3.36 K/uL (1.4-6.5); Neutrophils % (auto) 38.6 %; Platelet Count 153 K/uL (130-400); RDW Coefficient of Variation 12.9 % (11.5-14.5); RDW Standard Deviation 40.3 fL (36.4-46.3); Red Blood Count 4.57 M/uL (4.7-6.1); White Blood Count 8.71 K/uL (4.8-10.8)
[2019-02-14 07:38] LABS: INR 1.2 (0.9-1.1); Partial Thromboplastin Ratio 2.3; Prothrombin Time 11.8 Seconds (9.0-12.0)
[2019-02-14 07:51] LABS: Partial Thromboplastin Time 61.6 Seconds (21.0-31.0)
[2019-02-14 07:55] LABS: BUN Creatinine Ratio 13.7 (10-20); Calcium 8.7 mg/dl (8.5-10.1); Creatinine Clr Calc Pharmacy 127.2 ml/min; Est GFR (African American) 109.8; Est GFR (Non-African American) 94.8
[2019-02-14] MEDS: INSULIN ASPART 100 UNITS/ML 3 ML PEN SC SCH ×4 (07:56→20:52)
[2019-02-14] MEDS: ASCORBIC ACID 500 MG TAB PO SCH ×2 (07:59→20:48)
[2019-02-14] MEDS: OMEGA-3 (PURIFIED FISH OIL) 1 GM CAP PO SCH ×2 (07:59→20:48)
[2019-02-14] MEDS: METOPROLOL SUCC 25MG EXT REL TAB PO SCH (08:00)
[2019-02-14] MEDS: CHOLECALCIFEROL 1,000 UNITS TAB PO SCH ×2 (08:00→20:47)
[2019-02-14] MEDS: CALCIUM 600MG + VIT D 400 IU TAB PO SCH ×2 (08:00→20:49)
[2019-02-14] MEDS: CETIRIZINE HCL 10 MG TABLET PO SCH (08:00)
--- NOTE | 2019-02-14 08:14 | Cardiology Progress Note ---
Date of Service February 14, 2019 Subjective pt not able to take eliquis; so being transitioned to coumadin; will be discharged once INR >2. He will f/u with me in the office. Cardiology signing off. Results & Data Vital Signs (Past 12 Hours) Vital Signs Temp Pulse Pulse Resp BP BP Pulse Ox 02/14/19 07:11 36.6 C 67 18 142/92 H 95 02/14/19 03:41 36.7 C 70 20 150/96 H 95 02/13/19 23:18 36.8 C 65 18 138/88 96 02/13/19 23:04 65
[2019-02-14] MEDS: PANTOprazole 40 MG TAB PO SCH (09:35)
--- NOTE | 2019-02-14 10:52 | Pharmacy Report ---
Glycemic Control Progress Note - Date of Service February 14, 2019 - Scope Glycemic Pharmacist consulted for glycemic control to write orders per [facility] inpatient glycemic control protocol. - Objective Accuchecks BSG(last 24 hours):: 02/13/19 02/13/19 02/13/19 11:43 16:09 20:04 Glucose POC Glucose 166 H 163 H 151 H 02/14/19 02/14/19 07:03 07:09 Glucose 142 H POC Glucose 146 H HbA1c:: 7.6 % (4.5-5.6) H 02/13/19 07:39 - Recent Pertinent Medications The patient is currently receiving: * Basal insulin: Lantus 13 units every 24 hours * Correctional Insulin: Novolog Correction per scale ACHS Goal Range: Low 110 mg/dL - High 140 mg/dL Correction Factor: 20 mg/dL/unit * Prandial insulin: Per carb ratio of 1 unit per 7 grams CHO consumed - Outpatient Anti-Diabetic Meds Basaglar 10 units in the evening and metformin 500 BID - Assessment & Plan ASSESSMENT: * See progress note from 02/12/19 for more background info, in short: * Pt receiving SQ basal bolus insulin regimen for hyperglycemia secondary to ba seline DM (outpatient regimen on hold), currently on heparin drip for DVT/PE. * Patient is currently receiving an average of 47 units of insulin per day * 13 units of basal insulin * 34 units of prandial/correctional insulin * BSGs ranging 139 - 166 mg/dl over the past 24hrs * Changes needed to insulin regimen: * AM Fasting BSG = 146 mg/dl. This is slightly above goal range for patient based on inpatient targets and co-morbidities. Therefore Basal insulin will be increased by 20% to 15 units qPM * Post-prandial BSGs are in range therefore no changes needed to CF/CR. * Total daily dose = 50 units. PLAN FOR INPATIENT GLYCEMIC CONTROL: * INCREASING Lantus to 15 units SQ HS * Continuing correction factor of 20 mg/dl/unit * Continuing carb ratio of 1 unit per 7 grams CHO consumed * Continuing goal range of Low 110 mg/dL - High 140 mg/dL RECOMMENDATIONS FOR DISCHARGE: * Patient's HbA1C is reasonable for his age and comorbidities. * Please note that the plan above was derived based on current level of insulin resistance and hospital stress. These recommendations are appropriate for inpatient admission only. Plan of care upon discharge will need to be reassessed to avoid potential outpatient hypo/hyperglycemia. Thank you.
[2019-02-14] MEDS: LISINOPRIL 10 MG TAB PO SCH (15:29)
[2019-02-14] MEDS: WARFARIN SOD 10 MG TAB PO SCH (15:30)
--- NOTE | 2019-02-14 19:48 | Hospitalist Progress Note ---
Date of Service February 14, 2019 Assessment & Plan (1) Pulmonary embolism: Provoked --- recent surgical procedure (nancy ablation) and then significant immobility following that procedure. No personal or family history of DVT/PE. Cost of novel agent quite prohibitive (over 200 dollars/month). Also, studies of novel agents have been in patients <120 kg weight. He is over 130 kg of weight. Safest option and cheapest option is coumadin. Cont coumadin 10mg today. Cont heparin drip. may be candidate for lovenox injections later in his stay for bridging purposes. dopplers legs negative. updated at bedside today. daily PTT and INR. (2) Hypertension: continue home meds controlled (3) GERD (gastroesophageal reflux disease): PPI (4) Diabetes mellitus: control adequate cont basal-bolus regimen as is for now (5) Obstructive sleep apnea on CPAP: CPAP at HS (6) Hyperlipidemia: cont statin agent (7) SVT (supraventricular tachycardia): s/p ablation procedure by Dr Antunez on 02/06/19 tele stable without dysrhythmia while here ok to d/c tele and move to med/surg (8) Morbid obesity with BMI of 40.0-44.9, adult: BMI 43.8 needs weight loss (9) DVT prophylaxis: heparin drip coumadin d/c tele move to med/surg Subjective patient doing well pleuritic chest pain on left resolved no dyspnea at rest or w/ exertion walking the hallways tele without SVT Review of Systems Constitutional: no fever Respiratory: no cough and no dyspnea Cardiovascular: no dyspnea, no dyspnea on exertion, no orthopnea, no paroxysmal nocturnal dyspnea and no edema Gastrointestinal: no abdominal pain Physical Exam Constitutional: well developed, well nourished and + obese; no acute distress ENMT: external ear and nose normal, oropharynx normal Respiratory: normal respiratory effort, lungs clear to auscultation Cardiovascular: RRR, no murmur, no edema Heart Sounds: normal S1 and normal S2 Vessels: posterior tibial pulses present and dorsalis pedis pulses present; no JVD Gastrointestinal (Abdomen): normal bowel sounds, soft, nontender, no hepatosplenomegaly Psychiatric: A+Ox3, euthymic affect Results & Data Vital Signs (Past 12 Hours) Vital Signs Temp Pulse Pulse Resp BP Pulse Ox 02/14/19 18:00 36.7 C 69 18 121/76 94 02/14/19 16:00 62 02/14/19 15:19 36.7 C 71 20 122/84 96 02/14/19 11:09 36.3 C L 69 18 155/101 H 94 02/14/19 08:00 62 Laboratory Results Laboratory Results - last 24 hr 02/13/19 02/14/19 02/14/19 20:04 07:03 07:03 WBC 8.71 RBC 4.57 L Hgb 14.4 Hct 39.2 L MCV 85.8 MCH 31.5 MCHC 36.7 H RDW Std Deviation 40.3 RDW Coeff of Yoshi 12.9 Plt Count 153 MPV 10.0 Immature Gran % (Auto) 0.1 Neut % (Auto) 38.6 Lymph % (Auto) 48.7 [place] % (Auto) 8.6 Eos % (Auto) 3.7 Baso % (Auto) 0.3 Immature Gran # (Auto) 0.01 Neut # (Auto) 3.36 Lymph # (Auto) 4.24 H [place] # (Auto) 0.75 H Eos # (Auto) 0.32 Baso # (Auto) 0.03 PT INR APTT PTT Ratio Sodium 141 Potassium 4.0 Chloride 106 Carbon Dioxide 29 Anion Gap 6.0 BUN 11 Creatinine 0.82 Est Cr Clr Drug Dosing 127.2 Est GFR ( Amer) 109.8 Est GFR (Non-Af Amer) 94.8 BUN/Creatinine Ratio 13.7 Glucose 142 H POC Glucose 151 H Calcium 8.7 02/14/19 02/14/19 02/14/19 07:03 07:09 11:20 WBC RBC Hgb Hct MCV MCH MCHC RDW Std Deviation RDW Coeff of Yoshi Plt Count MPV Immature Gran % (Auto) Neut % (Auto) Lymph % (Auto) [place] % (Auto) Eos % (Auto) Baso % (Auto) Immature Gran # (Auto) Neut # (Auto) Lymph # (Auto) [place] # (Auto) Eos # (Auto) Baso # (Auto) PT 11.8 INR 1.2 H APTT 61.6 H* PTT Ratio 2.3 Sodium Potassium Chloride Carbon Dioxide Anion Gap BUN Creatinine Est Cr Clr Drug Dosing Est GFR ( Amer) Est GFR (Non-Af Amer) BUN/Creatinine Ratio Glucose POC Glucose 146 H 135 H Calcium 02/14/19 16:38 WBC RBC Hgb Hct MCV MCH MCHC RDW Std Deviation RDW Coeff of Yoshi Plt Count MPV Immature Gran % (Auto) Neut % (Auto) Lymph % (Auto) [place] % (Auto) Eos % (Auto) Baso % (Auto) Immature Gran # (Auto) Neut # (Auto) Lymph # (Auto) [place] # (Auto) Eos # (Auto) Baso # (Auto) PT INR APTT PTT Ratio Sodium Potassium Chloride Carbon Dioxide Anion Gap BUN Creatinine Est Cr Clr Drug Dosing Est GFR ( Amer) Est GFR (Non-Af Amer) BUN/Creatinine Ratio Glucose POC Glucose 128 H Calcium (1) Diabetes mellitus Diabetes mellitus complication status: without complication Diabetes mellitus termite helper insulin use: with termite helper use Diabetes mellitus type: type 2 Qualified Code(s): E11.9 - Type 2 diabetes mellitus without complications; Z79.4 - skilled nursing (current) use of insulin (2) Hyperlipidemia Hyperlipidemia type: mixed hyperlipidemia Qualified Code(s): E78.2 - Mixed hyperlipidemia (3) Pulmonary embolism Acute cor pulmonale presence: without acute cor pulmonale Chronicity: acute Pulmonary embolism type: unspecified Qualified Code(s): I26.99 - Other pulmonary embolism without acute cor pulmonale (4) GERD (gastroesophageal reflux disease) Esophagitis presence: esophagitis presence not specified Qualified Code(s): K21.9 - Gastro-esophageal reflux disease without esophagitis (5) Hypertension Hypertension type: essential hypertension Qualified Code(s): I10 - Essential (primary) hypertension
[2019-02-14] MEDS: ATORVASTATIN 20 MG TAB PO SCH (20:46)
[2019-02-14] MEDS: MULTIVITAMIN TAB PO SCH (20:47)
[2019-02-14] MEDS: SERTRALINE HCL 50 MG TABLET PO SCH (20:48)
[2019-02-14] MEDS ORDERED: INSULIN GLARGINE SOLOSTAR 100 UNITS/ML 3 ML PEN SQ SCH (21:00)
[2019-02-15] MEDS: Heparin Adult STANDARD Wt-Based Dextrose 5% 25,000 units/500 mL IV SCH (02:40)
[2019-02-15 06:26] LABS: Hematocrit (blood only) 38.3 % (42-52); Hemoglobin 14.1 g/dL (14.0-18.0); Mean Corpuscular Hgb Conc 36.8 g/dL (32-36); Mean Corpuscular Volume 86.1 fL (80-100); Mean Platelet Volume 9.9 fL (7.4-10.4); Platelet Count 150 K/uL (130-400); RDW Coefficient of Variation 12.7 % (11.5-14.5); RDW Standard Deviation 40.2 fL (36.4-46.3); Red Blood Count 4.45 M/uL (4.7-6.1); White Blood Count 9.85 K/uL (4.8-10.8)
[2019-02-15 06:54] LABS: BUN Creatinine Ratio 11.8 (10-20); Calcium 9.4 mg/dl (8.5-10.1); Creatinine Clr Calc Pharmacy 114.6 ml/min; Est GFR (African American) 104.3; Potassium 4.1 mmol/L (3.5-5.1)
[2019-02-15 06:57] LABS: INR 1.6 (0.9-1.1); Partial Thromboplastin Ratio 2.6; Prothrombin Time 16.2 Seconds (9.0-12.0)
[2019-02-15 07:01] LABS: Partial Thromboplastin Time 71.2 Seconds (21.0-31.0)
[2019-02-15 07:35] LABS: Basophils # (auto) 0.03 K/uL (0-0.2); Basophils % (auto) 0.3 %; Eosinophils # (auto) 0.35 K/uL (0-0.5); Eosinophils % (auto) 3.6 %; Immature Granulocytes # (auto) 0.01 K/uL (0.00-0.02); Immature Granulocytes % (auto) 0.1 %; Lymphocytes # (auto) 5.17 K/uL (1.2-3.4); Lymphocytes % (auto) 52.5 %; Monocytes # (auto) 0.73 K/uL (0.11-0.59); Monocytes % (auto) 7.4 %; Neutrophils # (auto) 3.56 K/uL (1.4-6.5); Neutrophils % (auto) 36.1 %; Smudge Cells Present
[2019-02-15] MEDS: CETIRIZINE HCL 10 MG TABLET PO SCH (08:04)
[2019-02-15] MEDS: ASCORBIC ACID 500 MG TAB PO SCH ×2 (08:05→20:07)
[2019-02-15] MEDS: PANTOprazole 40 MG TAB PO SCH (08:05)
[2019-02-15] MEDS: CHOLECALCIFEROL 1,000 UNITS TAB PO SCH ×2 (08:05→20:05)
[2019-02-15] MEDS: LISINOPRIL 10 MG TAB PO SCH (08:05)
[2019-02-15] MEDS: METOPROLOL SUCC 25MG EXT REL TAB PO SCH (08:05)
[2019-02-15] MEDS: OMEGA-3 (PURIFIED FISH OIL) 1 GM CAP PO SCH ×2 (08:05→20:06)
[2019-02-15] MEDS: CALCIUM 600MG + VIT D 400 IU TAB PO SCH ×2 (08:05→20:06)
[2019-02-15] MEDS: INSULIN ASPART 100 UNITS/ML 3 ML PEN SC SCH ×4 (09:27→20:11)
[2019-02-15 13:30] LABS: Partial Thromboplastin Ratio 2.4
[2019-02-15 13:35] LABS: Partial Thromboplastin Time 65.2 Seconds (21.0-31.0)
[2019-02-15] MEDS: WARFARIN SOD 10 MG TAB PO SCH (15:59)
[2019-02-15] MEDS ORDERED: ENOXAPARIN 150 MG/ML SYR SQ SCH (19:00)
[2019-02-15] MEDS: ATORVASTATIN 20 MG TAB PO SCH (20:07)
[2019-02-15] MEDS: MULTIVITAMIN TAB PO SCH (20:07)
[2019-02-15] MEDS: SERTRALINE HCL 50 MG TABLET PO SCH (20:07)
[2019-02-15] MEDS: ENOXAPARIN 150 MG/ML SYR SQ SCH (20:16)
[2019-02-15] MEDS ORDERED: INSULIN GLARGINE SOLOSTAR 100 UNITS/ML 3 ML PEN SQ SCH (21:00)
--- NOTE | 2019-02-15 22:24 | Hospitalist Progress Note ---
Date of Service February 15, 2019 Assessment & Plan (1) Pulmonary embolism: Provoked --- recent surgical procedure (nancy ablation) and then significant immobility following that procedure. No personal or family history of DVT/PE. Cost of novel agent quite prohibitive (over 200 dollars/month). Also, studies of novel agents have been in patients <120 kg weight. He is over 130 kg of weight. Safest option and cheapest option is coumadin. INR today 1.6. Cont coumadin 10mg today. Stop heparin drip mid-afternoon. Then start lovenox 1mg/kg BID tonight at 7pm. Pt/ aware of 7-day cost of lovenox for home bridging and are willing to pay it. INR in am. likely d/c home on lovenox bridge/coumadin tomorrow AM. (2) Hypertension: continue home meds controlled (3) GERD (gastroesophageal reflux disease): PPI (4) Diabetes mellitus: control adequate pharmacy managing; appreciate their assistance (5) Obstructive sleep apnea on CPAP: CPAP at HS (6) Hyperlipidemia: cont statin agent (7) SVT (supraventricular tachycardia): s/p ablation procedure by Dr Antunez on 02/06/19 tele had been stable without dysrhythmia when he was on tele earlier in the stay (8) Morbid obesity with BMI of 40.0-44.9, adult: BMI 43.8 needs weight loss (9) DVT prophylaxis: lovenox 1mg/kg BID coumadin home tomorrow hopefully updated Subjective patient hoping to leave today no pleuritic chest pain, dyspnea at rest, leos feels very good eating well ambulating lovenox injections - they feel comfortable w/ such Review of Systems Respiratory: no cough, no chest congestion, no dyspnea, no dyspnea on exertion and no pain on inspiration Cardiovascular: no chest pain, no chest pain at rest, no chest pain with activity, no dyspnea, no dyspnea on exertion, no orthopnea and no paroxysmal nocturnal dyspnea Gastrointestinal: no abdominal pain Physical Exam Constitutional: well developed, well nourished and + obese; no acute distress ENMT: external ear and nose normal, oropharynx normal Respiratory: normal respiratory effort, lungs clear to auscultation Cardiovascular: RRR, no murmur, no edema Heart Sounds: normal S1 and normal S2 Vessels: posterior tibial pulses present and dorsalis pedis pulses present; no JVD Gastrointestinal (Abdomen): normal bowel sounds, soft, nontender, no hepatosplenomegaly Psychiatric: A+Ox3, euthymic affect Results & Data Vital Signs (Past 12 Hours) Vital Signs Temp Pulse Resp BP Pulse Ox 02/15/19 15:00 36.8 C 64 14 118/68 94 Laboratory Results Laboratory Results - last 24 hr 02/15/19 02/15/19 02/15/19 06:04 06:04 06:04 WBC 9.85 RBC 4.45 L Hgb 14.1 Hct 38.3 L MCV 86.1 MCH 31.7 MCHC 36.8 H RDW Std Deviation 40.2 RDW Coeff of Yoshi 12.7 Plt Count 150 MPV 9.9 Immature Gran % (Auto) 0.1 Neut % (Auto) 36.1 Lymph % (Auto) 52.5 [place] % (Auto) 7.4 Eos % (Auto) 3.6 Baso % (Auto) 0.3 Immature Gran # (Auto) 0.01 Neut # (Auto) 3.56 Lymph # (Auto) 5.17 H [place] # (Auto) 0.73 H Eos # (Auto) 0.35 Baso # (Auto) 0.03 Smudge Cells Present Blood Smear Review PT 16.2 H INR 1.6 H APTT 71.2 H* PTT Ratio 2.6 Sodium 141 Potassium 4.1 Chloride 106 Carbon Dioxide 29 Anion Gap 6.0 BUN 11 Creatinine 0.91 Est Cr Clr Drug Dosing 114.6 Est GFR ( Amer) 104.3 Est GFR (Non-Af Amer) 90.0 BUN/Creatinine Ratio 11.8 Glucose 125 H POC Glucose Calcium 9.4 Flow Cytometry Comment 02/15/19 02/15/19 02/15/19 06:04 07:56 12:09 WBC RBC Hgb Hct MCV MCH MCHC RDW Std Deviation RDW Coeff of Yoshi Plt Count MPV Immature Gran % (Auto) Neut % (Auto) Lymph % (Auto) [place] % (Auto) Eos % (Auto) Baso % (Auto) Immature Gran # (Auto) Neut # (Auto) Lymph # (Auto) [place] # (Auto) Eos # (Auto) Baso # (Auto) Smudge Cells Blood Smear Review PT INR APTT PTT Ratio Sodium Potassium Chloride Carbon Dioxide Anion Gap BUN Creatinine Est Cr Clr Drug Dosing Est GFR ( Amer) Est GFR (Non-Af Amer) BUN/Creatinine Ratio Glucose POC Glucose 146 H 124 H Calcium Flow Cytometry Comment Pending 02/15/19 02/15/19 02/15/19 12:53 17:14 20:03 WBC RBC Hgb Hct MCV MCH MCHC RDW Std Deviation RDW Coeff of Yoshi Plt Count MPV Immature Gran % (Auto) Neut % (Auto) Lymph % (Auto) [place] % (Auto) Eos % (Auto) Baso % (Auto) Immature Gran # (Auto) Neut # (Auto) Lymph # (Auto) [place] # (Auto) Eos # (Auto) Baso # (Auto) Smudge Cells Blood Smear Review PT INR APTT 65.2 H* PTT Ratio 2.4 Sodium Potassium Chloride Carbon Dioxide Anion Gap BUN Creatinine Est Cr Clr Drug Dosing Est GFR ( Amer) Est GFR (Non-Af Amer) BUN/Creatinine Ratio Glucose POC Glucose 107 H 172 H Calcium Flow Cytometry Comment (1) Pulmonary embolism Acute cor pulmonale presence: without acute cor pulmonale Chronicity: acute Pulmonary embolism type: unspecified Qualified Code(s): I26.99 - Other pulmonary embolism without acute cor pulmonale (2) Hypertension Hypertension type: essential hypertension Qualified Code(s): I10 - Essential (primary) hypertension (3) GERD (gastroesophageal reflux disease) Esophagitis presence: esophagitis presence not specified Qualified Code(s): K21.9 - Gastro-esophageal reflux disease without esophagitis (4) Diabetes mellitus Diabetes mellitus type: type 2 Diabetes mellitus [facility] insulin use: with director long term care use Diabetes mellitus complication status: without complication Qualified Code(s): E11.9 - Type 2 diabetes mellitus without complications; Z79.4 - nursing home (current) use of insulin (5) Hyperlipidemia Hyperlipidemia type: mixed hyperlipidemia Qualified Code(s): E78.2 - Mixed hyperlipidemia
[2019-02-16 06:16] LABS: Hematocrit (blood only) 39.7 % (42-52); Hemoglobin 13.9 g/dL (14.0-18.0); Mean Platelet Volume 10.2 fL (7.4-10.4); Platelet Count 157 K/uL (130-400); RDW Standard Deviation 41.6 fL (36.4-46.3); Red Blood Count 4.51 M/uL (4.7-6.1); White Blood Count 8.54 K/uL (4.8-10.8)
[2019-02-16 06:26] LABS: INR 2.6 (0.9-1.1); Prothrombin Time 24.8 Seconds (9.0-12.0)
[2019-02-16] MEDS: ENOXAPARIN 150 MG/ML SYR SQ SCH (06:40)
[2019-02-16 06:49] LABS: Creatinine Clr Calc Pharmacy 109.8 ml/min; Est GFR (Non-African American) 85.4
[2019-02-16] MEDS: PANTOprazole 40 MG TAB PO SCH (09:07)
[2019-02-16] MEDS: ASCORBIC ACID 500 MG TAB PO SCH (09:08)
[2019-02-16] MEDS: CHOLECALCIFEROL 1,000 UNITS TAB PO SCH (09:08)
[2019-02-16] MEDS: CETIRIZINE HCL 10 MG TABLET PO SCH (09:08)
[2019-02-16] MEDS: METOPROLOL SUCC 25MG EXT REL TAB PO SCH (09:08)
[2019-02-16] MEDS: INSULIN ASPART 100 UNITS/ML 3 ML PEN SC SCH (09:08)
[2019-02-16] MEDS: CALCIUM 600MG + VIT D 400 IU TAB PO SCH (09:08)
[2019-02-16] MEDS: LISINOPRIL 10 MG TAB PO SCH (09:08)
[2019-02-16] MEDS: OMEGA-3 (PURIFIED FISH OIL) 1 GM CAP PO SCH (09:08)
[2019-02-16] MEDS ORDERED: LOVENOX TEACHING KIT ONE (09:30)
[2019-02-16] MEDS ORDERED: WARFARIN SOD 5 MG TAB PO SCH (16:00)
--- NOTE | 2019-02-18 15:03 | History & Physical Bridge Note ---
Date of Service February 18, 2019 History & Physical Bridge Note Spoke with Mr Adler on Monday, 02/17. INR 3.1. INR has continued to increase over the last 48 hours. Instructed him to take 2.5mg TODAY ONLY and continue lovenox injections. Return on Monday am to hospital for another INR. Spoke again to Mr Adler on 02/18. INR 2. This reflects a dose of coumadin 5mg given this past Monday. Odd that INR dropped so quickly in 24 hours. [id number] I recommended 7.5mg of coumadin TODAY ONLY and give himself 1 more injection of lovenox tonight in the event his INR drops below 2 by tomorrow. He has f/u with his PCP TOMORROW AM. instructed him to have INR checked at that visit. Can hold lovenox tomorrow AM pending tomorrow's INR. He voiced understanding of instructions. Bo Shipley MD
--- NOTE | 2019-02-18 15:03 | Discharge Summary ---
Date of Service date of admission - February 12, 2019 date of discharge - February 16, 2019 Admission HPI Per Admitting Provider This is a 63-year-old male that presents with pain that began at 0400 this morning in his back and radiated to his left chest just lateral to the sternum and at about intercostal space #5. The patient reports that this awoke him from sleep. He had no shortness of breath at the time and no awareness of arrhythmias. In discussion with his it was decided they would come to the emergency room to be evaluated inasmuch as the patient just had an SVT flutter ablation 02/06/[address] Antunez. Patient was found to have a pulmonary embolus at the left pulmonary artery with some proximal distribution to left upper lobe and left lower lobe segmental branches. Patient has been hemodynamically stable and is being started on a heparin drip. Patient was also found to have hypomagnesemia and was given 1 g of magnesium sulfate IV in the emergency department. Patient denies any shortness of breath, tachyarrhythmia, hemoptysis, sweats, rigors, nausea, vomiting. Patient denies any previous thromboembolic disease. Patient states that since his procedure on 02/06/2019 he has been rather sedentary and has been sleeping a significant amount of the miller e. Patient denies any asymmetrical edema of the lower extremities. He further denies any calf or thigh pain. He has no other acute complaints at this time Principal Diagnosis left-sided pulmonary emboli Discharge Exam Constitutional well developed, well nourished and + obese; no acute distress ENMT external ear and nose normal, oropharynx normal Respiratory normal respiratory effort, lungs clear to auscultation Cardiovascular RRR, no murmur, no edema Heart Sounds: normal S1 and normal S2 Vessels: posterior tibial pulses present and dorsalis pedis pulses present; no JVD Gastrointestinal (Abdomen) normal bowel sounds, soft, nontender, no hepatosplenomegaly Psychiatric A+Ox3, euthymic affect Discharge Data Allergies Allergy/AdvReac Type Severity Reaction Status Date / Time amoxicillin Allergy Unknown RED AND Verified 02/12/19 05:29 START TO SWELL UP Influenza Virus Vaccines Allergy Unknown "MAKES ME Verified 02/12/19 05:29 SICKER" streptomycin Allergy Unknown EYES BURN Verified 02/12/19 05:29 Consultations cardiology - Andie Antunez DO Ordered Studies 1. CTA chest - IMPRESSION: 1. Study is positive for acute pulmonary emboli involving the distal left main pulmonary artery as well as the left lower and left upper lobe distributions proximally. 2. Lungs are considered clear with no focal infiltrate. 3. Negative thoracic aorta. 2. b/l LE venous dopplers - negative for DVT Hospital Course (1) Pulmonary embolism: Provoked --- recent surgical procedure (SVT ablation) and then significant immobility following that procedure. No personal or family history of DVT/PE. Cost of novel agent quite prohibitive (over 200 dollars/month). Also, studies of novel agents have been in patients <120 kg weight. He is over 130 kg of weight. Safest option and cheapest option is coumadin. Patient was initially treated with IV heparin and started on coumadin. Coumadin dosing was as follows - received 10mg x 3 days, then 5mg on day of discharge. Discharge INR was 2.6 He was transitioned to lovenox for bridge therapy at time of discharge and will take such for 2 days. He will return to [facility] for daily INR checks until he is seen by his PCP on 02/19/19. A referral to the [facility] anticoagulation clinic was also made and he will establish there in about 5-7 days after discharge. He received coumadin and lovenox teaching prior to discharge. (2) Hypertension: continue home meds controlled while here (3) GERD (gastroesophageal reflux disease): PPI (4) Diabetes mellitus: control adequate pharmacy managed this during the stay (5) Obstructive sleep apnea on CPAP: CPAP at HS (6) Hyperlipidemia: cont statin agent (7) SVT (supraventricular tachycardia): s/p ablation procedure by Dr Antunez on 02/06/19 tele was normal his entire stay (8) Morbid obesity with BMI of 40.0-44.9, adult: BMI 43.8 needs weight loss Total Time Total Time Spent Total Time Spent (In Minutes): 45 Total Time Includes: Examination of the Patient, Discharge Planning and Medication Reconciliation Discharge Plan Discharge Items Patient Disposition: Home - Self-Care Reason For Visit: PULMONARY EMBOLI Discharge Diagnosis: pulmonary emboli (blood clots in lungs) Condition: Good Discharge Goals: Diagnostic testing Activity: As commented below Activity Comment: strenuous activity may give you shortness of breath; avoid such 1-2 wks Bathing: No limitations Sexual Activity: Wait until after follow-up appointment Exercise/Sports: Gradually increase as tolerated Driving/Machine Use: No limitations Driving/Machine Use Comment: avoid power tools due to high risk of injury with bleeding Non-emergency contact: Primary Care Provider Call non-emergency contact if: you have any medication questions, your symptoms worsen and your temperature is above 100.5 Follow-up/Referrals: [facility] [Provider Group] - 02/22/19 9:45 am (Please, follow up at [facility] (Coumadin Clinic) on MondayFebruary 22 at 10:00 am (arrive 9:45 am). *The clinic is located in the rear of this hospital building. Park behind the hospital in [address] and enter via [facility].) Shonda Forbes MD [Primary Care Provider] - 02/19/19 10:45 am (Please, follow up at [facility] with Dr. Forbes on MondayFebruary 19 at 10:45. *They will draw labs, too. *If you have any questions, call the office at [phone].) Diet: Carb Consistent or DM2 and Heart Healthy Other Ambulatory Orders: Prothrombin Time INR (DAILY) Timeframe: 20190218 Location: Determined by Patient Ordered By: Bo Shipley Prothrombin Time INR (DAILY) Timeframe: 20190219 Location: Determined by Patient Ordered By: Bo Shipley Prothrombin Time INR (DAILY) Timeframe: 20190220 Location: Determined by Patient Ordered By: Bo Shipley Prothrombin Time INR (DAILY) Timeframe: 20190221 Location: Determined by Patient Ordered By: Bo Shipley Prothrombin Time INR (DAILY) Timeframe: 20190222 Location: Determined by Patient Ordered By: Bo Shipley Addtl Provider Instructions: From Bo Shipley - hospitalist: You were admitted for pulmonary emboli (blood clots in the left lung). We believe that you developed these because of your recent surgical procedure and being relatively immobile after the procedure. We checked the legs for DVT blood clots and none were found there. You have done well on heparin and ultimately lovenox with coumadin. Your discharge "INR" (blood thinner number) is 2.6. The "INR GOAL" for you will be between 2 and 3. The coumadin clinic will ultimately monitor your INR frequently. The higher the INR number the "thinner" the blood. Normal thickness of blood is an INR of 1. At this time we recommend - 1. continue lovenox injections twice daily for the next 48 hours. Take your first shot TONIGHT about 8pm. Try to space these out about every 12 hours. 2. take coumadin 5mg by mouth at 4pm tonight. Wait for my phone call tomorrow to determine Monday's dose. 3. take lisinopril 5mg daily for blood pressure and kidney protection. 4. STOP your aspirin. 5. DO NOT TAKE [id number] motrin, ibuprofen, naprosyn, alleve. TYLENOL IS OK. 6. Eat a consistent diet day to day. 7. Avoid alcohol with coumadin. 8. Other coumadin (warfarin) instructions -- * Warfarin is a medicine prescribed to prevent blood clots * Warfarin will thin your blood and help prevent new clots * Take your medications exactly as directed * Never skip a dose. Never take a double dose. If you miss a dose, take it as soon as you remember * It is important for your doctor to monitor your INR. This is a lab test * Keep your appointment for lab tests Risk of Adverse Drug Reactions and Interactions: * Warfarin increases your risk of bleeding * The food you eat and other medications you take can affect how Warfarin works in your body * Ask your doctor about daily aspirin therapy * It is very important to talk with your doctor about all of the other medicines, antibiotics, vitamins or herbal products that you are taking * All of your medication must be approved by your doctor, including new medicines, as well as medicines you have taken before you started taking Warfarin Diet: * In order for Warfarin to work properly, it is important to keep your intake of Vitamin K as consistent as possible * You should avoid any sudden change in Vitamin K intake * Report any significant changes in your diet or weight to your doctor Call your Primary Care doctor if you experience any of the following: * Swelling or Pain in your leg * Sudden, continuous pain deep in a muscle * Pain that worsens when you are active or when you stand still for a long time * Chest Pain * Sudden Shortness of Breath * Rapid or pounding heart beat * Fainting * Dizziness * Cough with blood or bloody sputum * Sweating more than normal * Bruises * Heavy or uncontrolled bleeding * Blood in your urine, stool or vomit * Black or tarry stools * Severe nose bleeding Caring for Your Self at Home: * Avoid sitting, standing or lying down for long periods without moving your legs and feet * When traveling by car, stop to get out and move around at least once every 3 hours * On long airplane, train or bus rides, get up and move around when possible * If you can't get up, wiggle your toes and tighten your calves to keep your blood moving * Use an electric shaver for shaving your face; avoid traditional straight razors PLEASE REPORT TO [facility] ON MONDAY MORNING, 02/17/2019, FOR INR CHECK. YOU WILL ALSO NEED THIS ON 02/18/2019. I WILL CONTACT YOU WITH YOUR INR LEVELS AND FURTHER COUMADIN INSTRUCTIONS. Follow-up -- see separate section. Return to [facility] if -- * you experience bleeding problems * you have worsening shortness of breath, chest pains, or abdominal pains * any other concerns Prescriptions: New warfarin [Coumadin] 5 mg Tablet 5 mg PO DAILY@1600 Qty: 30 RF: 2 enoxaparin [Lovenox] 150 mg/mL Syringe 135 mg subcut Q12H 7 Days Qty: 12.6 RF: 0 lisinopril 5 mg tablet 5 mg PO DAILY Qty: 30 RF: 2 Continued metoprolol succinate 25 mg Tablet Extended Release 24 Hr 37.5 mg PO QAM Qty: 45 RF: 0 multivitamin Tablet 1 tab PO QPM RF: 0 metformin 500 mg Tablet 500 mg PO BID RF: 0 cetirizine [Zyrtec] 10 mg Tablet 10 mg PO QAM RF: 0 acetaminophen [Tylenol Extra Strength] 500 mg Tablet 500 - 1,000 mg PO Q6H PRN (Reason: Pain) RF: 0 potassium 99 mg Tablet 99 mg PO QPM RF: 0 ascorbic acid (vitamin C) [Vitamin C] 500 mg Tablet 500 mg PO BID RF: 0 sertraline 50 mg Tablet 50 mg PO QPM RF: 0 cholecalciferol (vitamin D3) [Vitamin D3] 1,000 unit Tablet 1,000 unit PO BID RF: 0 calcium carbonate-vitamin D3 [Calcium 600 + D(3)] 600 mg(1,500mg) -400 unit Tablet 1 tab PO BID RF: 0 Basagldoris GrahamikPen U-100 Insulin 100 unit/mL (3 mL) Insulin Pen 10 unit SUBCUT QPM RF: 0 omeprazole 20 mg Tablet,Delayed Release (Dr/Ec) 20 mg PO QAM RF: 0 omega 1-bjj-nfv-fish oil [Fish Oil] 1,000 mg (120 mg-180 mg) Capsule 1 cap PO BID RF: 0 atorvastatin [Lipitor] 40 mg Tablet 20 mg PO QPM RF: 0 ciclopirox [Loprox (as olamine)] 0.77 % Cream 1 applic TOPICAL Q12H PRN (Reason: Rash) RF: 0 Discontinued aspirin 81 mg Tablet,Delayed Release (Dr/Ec) 81 mg PO QAM RF: 0 Stand-Alone Forms: Call Back Authorization, [facility]/Other Patient Handouts: Enoxaparin Sodium Porcine Solution for injection, Embolism Pulmonary, Coumadin Discharge Orders: Discharge Order (Routine); Ordered 02/16/19 Ordered By: Bo Sihpley Admission Data Admit Date/Time: 02/12/19 09:40 Attending Provider: Bo Shipley Admit Provider: Bo Shipley Primary Care Provider: Shonda Forbes Other Providers: Bo Shipley ; Andie Antunez Service: Medical Other Interventions: Discharge Summary Assessment (RN) Last Done: 02/16/19 11:06 DC Date/Time DO NOT enter until pt leaves facility: 02/16/19 12:19
== END 2019-02-16 12:19 | disposition home or self-care (01) | DRG 300 ==
LOC: ED 04:55 → 2S 09:40 → 4W 02-14 16:37